=== PATIENT | female | born 1995 | race American Indian/Alaskan Native ===

== ENCOUNTER 2017-09-18 21:34 | Emergency (ER) | payer MEDICAID ==
[2017-09-18] MEDS ORDERED: Sodium Chloride 0.9% 1,000 ML IV STA ×2 (21:50→22:15)
[2017-09-18 22:34] LABS: BASO % 0.3 % (0.0-2.0); EOS # 0.2 K/uL (0.0-0.7); EOS % 1.5 % (0.0-4.0); HEMOGLOBIN 12.8 g/dL (12.0-16.0); LYMPH # 3.5 K/uL (1.0-4.3); MEAN CELL VOLUME 80.1 fl (81.0-99.0); MEAN CORPUSCULAR HEMOGLOBIN 26.4 pg (27.0-31.0); MEAN CORPUSCULAR HGB CONC 32.9 g/dL (33.0-37.0); MEAN PLATELET VOLUME 8.5 fl (7.2-11.7); MONO # 0.9 K/uL (0.0-0.8); MONO % 6.4 % (0.0-10.0); NEUT # 9.9 K/uL (1.8-7.0); NEUT % 67.8 % (50.0-75.0); NRBC % 0.1 % (0.0-0.0); RBC 4.86 Mil/uL (3.80-5.20); RED CELL DISTRIBUTION WIDTH 13.8 % (11.5-14.5); WHITE BLOOD COUNT 14.7 K/uL (4.8-10.8)
--- NOTE | 2017-09-18 22:34 | ED PDOC ---
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 Additional Complaint(s): 22 year old female with a pmhx of type II diabetes, bipolar disorder, ADHD, and depression presents for high blood sugar onset today. Of note, patient was just recently discharged from [facility] after a weeks admission for a psychiatric illness. Patient states she is currently a resident at a skilled nursing, and when she checked her blood sugar there it was 317 despite taking her metformin, prompting her to come in. As per the group dynamics instructor , patient is actually brought in for exhibiting aggressive, disruptive and violent behavior. The rag room supervisor reports the police had to be called and was informed the patient was suicidal. The patient is denying this, and states she was only brought in for her high blood sugar. PMD: none provided Past Medical History Reviewed: Historical Data, Nursing Documentation, Vital Signs Vital Signs: Last Vital Signs Temp 97.8 F 09/18/17 21:38 Pulse 120 H 09/18/17 21:38 Resp 18 09/18/17 21:38 BP 133/83 09/18/17 21:38 Pulse Ox 99 09/18/17 21:38 - Medical History PMH: Bipolar Disorder, Depression, Diabetes (type II), Schizophrenia Other PMH: ADHD - Surgical History Surgical History: No Surg Hx - Family History Family History: States: Unknown Family Hx - Living Arrangements Living Arrangements: Other (resident at a skilled nursing) - Social History Current smoker - smoking cessation education provided: No Alcohol: None Drugs: Denies - Allergies Allergies/Adverse Reactions: Allergies Allergy/AdvReac Type Severity Reaction Status Date / Time haloperidol [From Haldol] Allergy ANAPHYLAXIS Verified 09/18/17 21:37 risperidone [From Risperdal] Allergy ANAPHYLAXIS Verified 09/18/17 21:37 shellfish derived Allergy ANAPHYLAXIS Verified 09/18/17 21:38 Review of Systems ROS Statement: Except As Marked, All Systems Reviewed And Found Negative Constitutional: Positive for: Other (high blood sugar) Psych: Positive for: Suicidal ideation, Other (aggressive behavior) Physical Exam - Reviewed Nursing Documentation Reviewed: Yes Vital Signs Reviewed: Yes - Physical Exam Appears: Positive for: No Acute Distress Head Exam: Positive for: ATRAUMATIC, NORMOCEPHALIC Skin: Positive for: Normal Color, Warm, Dry Eye Exam: Positive for: Normal appearance, EOMI, PERRL ENT: Positive for: Normal ENT Inspection Neck: Positive for: Normal, Painless ROM, Supple Cardiovascular/Chest: Positive for: Tachycardia Respiratory: Positive for: Normal Breath Sounds. Negative for: Accessory Muscle Use, Respiratory Distress Gastrointestinal/Abdominal: Positive for: Normal Exam, Soft. Negative for: Tenderness Back: Positive for: Normal Inspection. Negative for: L CVA Tenderness, R CVA Tenderness, Vertebral Tenderness Extremity: Positive for: Normal ROM. Negative for: Pedal Edema, Calf Tenderness Neurologic/Psych: Positive for: Alert, Oriented (x3). Negative for: Motor/ Sensory Deficits - Laboratory Results Result Diagrams: 09/18/17 22:30 09/18/17 22:30 - ECG O2 Sat by Pulse Oximetry: 99 (RA) Pulse Ox Interpretation: Normal Medical Decision Making Medical Decision Making: Initial Impression: 22 year old female presenting with hyperglycemia and possible psychiatric disturbance Time: 21:49 Initial Plan: --1:1 Observation --Crisis eval --Urinalysis --Accucheck glucose --Normal Saline --CBC with differential --Urine --Urine dipstick --[place] --Drug screen --CMP --Alcohol serum --EKG Lasb reviewed show no clinically significant abnormalities with exception of mild hyperglycemia Patient evaluated by crisis and found to be stable for discharge to her skilled nursing DX Hyperglycemia Stable Scribe Attestation: Documented by Josie Huang, acting as a scribe for Tito Harper MD. Provider Scribe Attestation: All medical entries made by the Scribe were at my direction and personally dictated by me. I have reviewed the chart and agree that the record accurately reflects my personal performance of the history, physical exam, medical decision making, and the department course for this patient. I have also personally directed, reviewed, and agree with the discharge instructions and disposition. Time: 0128 -- Patient evaluated by crisis and is stable for discharge. -- Dx: hyperglycemia and borderline personality disorder. Scribe Attestation: Documented by Minerva Rosario acting as a scribe for Dr. Tito Harper MD. Provider Scribe Attestation: All medical record entries made by the Scribe were at my direction and personally dictated by me. I have reviewed the chart and agree that the record accurately reflects my personal performance of the history, physical exam, medical decision making, and the department course for this patient. I have also personally directed, reviewed, and agree with the discharge instructions and disposition. Disposition - Clinical Impression Clinical Impression: Hyperglycemia - Disposition Disposition: Routine/Home Disposition Time: 00:00 Condition: STABLE Additional Instructions: Patient discharged to skilled nursing Instructions: Hyperglycemia, Adult, Blood Glucose Monitoring Forms: [employer] (Romanian)
[2017-09-18 22:44] LABS: ALB/GLOB RATIO 1.3 (1.0-2.1); ALBUMIN 4.4 g/dL (3.5-5.0); ALT/SGPT 27 U/L (9-52); AST/SGOT 22 U/L (14-36); BLOOD UREA NITROGEN 10 mg/dl (7-17); CALCIUM 9.6 mg/dL (8.4-10.2); GFR AFRICAN-AMERICAN > 60; GFR NON-AFRICAN AMERICAN > 60
[2017-09-19 00:07] LABS: SQUAMOUS EPITHIAL 1 /hpf (0-5); URINE BILIRUBIN NEGATIVE (NEGATIVE); URINE BLOOD SMALL (NEGATIVE); URINE CLARITY CLEAR (Clear); URINE COLOR YELLOW (YELLOW); URINE GLUCOSE (UA) 150 mg/dL (Normal); URINE LEUKOCYTE ESTERASE NEG Leu/uL (Negative); URINE PROTEIN NEGATIVE (NEGATIVE); URINE UROBILINOGEN 0.2-1.0 mg/dL (0.2-1.0)
[2017-09-19 00:11] LABS: BARBITURATES, UR NEGATIVE (NEGATIVE); BENZODIAZEPINES, UR NEGATIVE (NEGATIVE); OPIATES, UR NEGATIVE (NEGATIVE); PHENCYCLIDINE, UR NEGATIVE (NEGATIVE)
[2017-09-19 11:01] VITALS: BP 132/69; PULSE 90; RESP 18; TEMP 98.1
--- NOTE | 2017-09-19 13:06 | CARD ---
APPROVED REPORT EKG Measurement Heart [id number] <Conclusion> Normal sinus rhythm Normal ECG
[2017-09-19 19:55] VITALS: O2SAT 99
== END 2017-09-19 10:44 | disposition home or self-care (01) ==
LOC: H.ER 21:34
DX: E11.65 Type 2 diabetes mellitus with hyperglycemia (principal); F20.9 Schizophrenia, unspecified; F31.9 Bipolar disorder, unspecified; F60.3 Borderline personality disorder; F90.9 Attention-deficit hyperactivity disorder, unspecified type
CPT/HCPCS: 80053; 80178; 80320; 80324; 80345; 80346; 80349; 80353; 80358; 80361; 81003; 81025; 82948; 83992; 85025; 93005; 96360; 99285; J7030

== ENCOUNTER 2017-09-20 13:10 | Inpatient (IN) | payer MEDICAID ==
[2017-09-20] MEDS ORDERED: DiphenhydrAMINE 50 mg/ml Inj ONE (13:27)
[2017-09-20] MEDS ORDERED: DiphenhydrAMINE 50 mg/ml Inj IM STA (13:44)
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
[2017-09-20 14:50] LABS: BASO % 0.2 % (0.0-2.0); EOS # 0.1 K/uL (0.0-0.7); EOS % 0.5 % (0.0-4.0); LYMPH # 2.5 K/uL (1.0-4.3); LYMPH % 14.3 % (20.0-40.0); MEAN CORPUSCULAR HGB CONC 32.4 g/dL (33.0-37.0); MEAN PLATELET VOLUME 8.5 fl (7.2-11.7); MONO # 0.8 K/uL (0.0-0.8); MONO % 4.8 % (0.0-10.0); NEUT # 13.9 K/uL (1.8-7.0); NEUT % 80.2 % (50.0-75.0); RED CELL DISTRIBUTION WIDTH 13.9 % (11.5-14.5); WHITE BLOOD COUNT 17.3 K/uL (4.8-10.8)
[2017-09-20 15:09] LABS: ALB/GLOB RATIO 1.1 (1.0-2.1); ALBUMIN 4.2 g/dL (3.5-5.0); ALT/SGPT 28 U/L (9-52); AST/SGOT 37 U/L (14-36); BLOOD UREA NITROGEN 12 mg/dl (7-17); CALCIUM 9.9 mg/dL (8.4-10.2); GFR AFRICAN-AMERICAN > 60; GFR NON-AFRICAN AMERICAN > 60
[2017-09-20 15:23] LABS: SQUAMOUS EPITHIAL 3 /hpf (0-5); URINE BILIRUBIN NEGATIVE (NEGATIVE); URINE BLOOD SMALL (NEGATIVE); URINE CLARITY CLOUDY (Clear); URINE COLOR YELLOW (YELLOW); URINE GLUCOSE (UA) NEG (Normal); URINE LEUKOCYTE ESTERASE TRACE Leu/uL (Negative); URINE PROTEIN 30 mg/dL (NEGATIVE); URINE UROBILINOGEN 0.2-1.0 mg/dL (0.2-1.0)
[2017-09-20 15:53] LABS: BARBITURATES, UR NEGATIVE (NEGATIVE); BENZODIAZEPINES, UR NEGATIVE (NEGATIVE); OPIATES, UR NEGATIVE (NEGATIVE); PHENCYCLIDINE, UR NEGATIVE (NEGATIVE)
[2017-09-20 17:46] LABS: BASO # 0.1 K/uL (0.0-0.2); BASO % 0.4 % (0.0-2.0); EOS # 0.1 K/uL (0.0-0.7); EOS % 0.5 % (0.0-4.0); HEMOGLOBIN 12.5 g/dL (12.0-16.0); LYMPH # 3.5 K/uL (1.0-4.3); LYMPH % 17.4 % (20.0-40.0); MEAN CELL VOLUME 80.3 fl (81.0-99.0); MEAN CORPUSCULAR HEMOGLOBIN 25.9 pg (27.0-31.0); MEAN CORPUSCULAR HGB CONC 32.2 g/dL (33.0-37.0); MEAN PLATELET VOLUME 8.5 fl (7.2-11.7); MONO # 1.1 K/uL (0.0-0.8); MONO % 5.6 % (0.0-10.0); NEUT # 15.4 K/uL (1.8-7.0); NEUT % 76.1 % (50.0-75.0); RBC 4.81 Mil/uL (3.80-5.20); RED CELL DISTRIBUTION WIDTH 14.1 % (11.5-14.5); WHITE BLOOD COUNT 20.2 K/uL (4.8-10.8)
[2017-09-20] MEDS ORDERED: Sodium Chloride 0.9% 1,000 ML IV STA ×2 (18:03→19:40)
[2017-09-20 20:49] LABS: BASO # 0.1 K/uL (0.0-0.2); BASO % 0.6 % (0.0-2.0); EOS # 0.2 K/uL (0.0-0.7); EOS % 0.9 % (0.0-4.0); HEMOGLOBIN 11.7 g/dL (12.0-16.0); LYMPH # 3.8 K/uL (1.0-4.3); LYMPH % 21.4 % (20.0-40.0); MEAN CELL VOLUME 79.8 fl (81.0-99.0); MEAN CORPUSCULAR HEMOGLOBIN 26.3 pg (27.0-31.0); MEAN PLATELET VOLUME 8.3 fl (7.2-11.7); MONO % 5.9 % (0.0-10.0); NEUT # 12.6 K/uL (1.8-7.0); NEUT % 71.2 % (50.0-75.0); RBC 4.45 Mil/uL (3.80-5.20); WHITE BLOOD COUNT 17.7 K/uL (4.8-10.8)
--- NOTE | 2017-09-20 21:35 | ED PDOC ---
- Laboratory Results Result Diagrams: 09/20/17 20:45 09/20/17 14:40 - ECG O2 Sat by Pulse Oximetry: 96 Medical Decision Making Medical Decision Making: Case endorsed to me from MARY Rod at 1999 pending [facility] screen. Labs reviewed, wbc is noted to be elevated, however the patient has no source of infection, has no fever and no other complaints indicating a possible source of infection. [address]100 [facility] here to evaluate the patient. After [facility] evaluation, decision will be for inpatient admission as per Dr. Cam. Disposition - Clinical Impression Clinical Impression: Suicide gesture, Schizophrenia - POA Present On Arrival: None - Disposition Disposition: Admitted as In-Patient Disposition Time: 22:00 Condition: FAIR Forms: [employer] (Estonian) - PA / RECEPTIONIST/TELEPHONE OPERATOR / Resident Statement MD/DO has reviewed & agrees with the documentation as recorded.
[2017-09-20] MEDS ORDERED: DiphenhydrAMINE 50 mg/ml Inj IM PRN (23:08)
[2017-09-20] MEDS ORDERED: Magnesium Hydroxide Susp 30 ml UD PO PRN (23:08)
[2017-09-20] MEDS ORDERED: Alum-Mag Hydrox-Simethicone Susp (30 mL) PO PRN (23:08)
[2017-09-20 23:11] VITALS: O2SAT 100
[2017-09-21 00:07] VITALS: RESP 20
--- NOTE | 2017-09-21 00:16 | PCM.BM ---
Treatment Plan Problems - Problems identified on initial assessmt Auditory hallucinations Date Initiated: 09/21/17 Time Initiated: 00:14 Assessment reference: NA Status: Active Visual hallucinations Date Initiated: 09/21/17 Time Initiated: 00:15 Assessment reference: NA Status: Active Hopelessness/Helplessness Date Initiated: 09/21/17 Time Initiated: 00:16 Assessment reference: NA Status: Active Altered Sleep pattern Date Initiated: 09/21/17 Time Initiated: 00:17 Assessment reference: NA Status: Active Medication Nonadherence Date Initiated: 09/21/17 Time Initiated: 00:17 Assessment reference: NA Status: Active Nutrition More than Body requierement Date Initiated: 09/21/17 Time Initiated: 00:18 Assessment reference: NA Status: Active Treatment assets and liabiliti Patient Assests: adapts well, ADL independent, negotiates basic needs Patient Liabilities: poor support system, relationship conflicts, substance abuse, medical problems - Milieu Protocol Maintain good personal hygiene: daily Assist patient to perform ADL's, every shift Encourage regular showers, every shift Remind patient to perform daily oral care Conduct patient checks and document Observation sheet: Q15 minutes Maintain personal safety: every shift Educate patient to report safety concerns to staff, every shift Monitor environment for contraband/sharps Medication safety: Monitor for expected outcome, potential side effects: every shift, Assess barriers to learning: every shift, Assess readiness for medication education: every shift
[2017-09-21 08:01] LABS: HEMOGLOBIN 11.9 g/dL (12.0-16.0); MEAN CELL VOLUME 80.4 fl (81.0-99.0); MEAN CORPUSCULAR HEMOGLOBIN 26.1 pg (27.0-31.0); MEAN CORPUSCULAR HGB CONC 32.5 g/dL (33.0-37.0); RBC 4.54 Mil/uL (3.80-5.20); WHITE BLOOD COUNT 12.4 K/uL (4.8-10.8)
[2017-09-21 08:39] LABS: T4 10.7 ug/dl (5.5-11.0)
--- NOTE | 2017-09-21 10:15 | RAD ---
HISTORY: ROUTINE COMPARISON: No prior. FINDINGS: LUNGS: No active pulmonary disease. PLEURA: No significant pleural effusion identified, no pneumothorax apparent. CARDIOVASCULAR: Normal. OSSEOUS STRUCTURES: No significant abnormalities. VISUALIZED UPPER ABDOMEN: Normal. OTHER FINDINGS: None. IMPRESSION: No active disease.
--- NOTE | 2017-09-21 12:42 | PCM.PSYCH ---
Initial Psychiatric Evaluation - Initial Psychiatric Evaluation Type of Admission: Voluntary Legal Status: Capacity Chief Complaint (in patient's own words): I hear the devil telling me to hurt myself Patient's Reaction to Hospitalization: pt requesting help History of Present Illness and Precipitating Events: pt is 22ys old femabramwe with previous psychiatric diagnosis of schizoaffective disorder and learning disability , pt reported has been in psychiatric treatment since age [age] pt has been recently transferred to a senior living after three month hospitalization at [facility], followed by [place] week [place] [facility], pt reported poor compliance with medications including risperidone, abilify and seroquel due to side effects pt since then has been experiencing auditory hallucinations, hearing the devil talking to her , pt reported feeling unhappy in the senior living due to the conflict with staff, on day of evaluation they refused to let her go to [facility]ianist she became increasingly angry starting , ran from the senior living, she started experiencing suicidal ideation with plan to cut her wrist , when found by police she became agitated and aggressive and had to be restrained, \pt on the unit reported she continues to hear auditory hallucinations, hearing the devil telling her to kill herself, reported continues to have urges to cut her wrist, reported feeling depressed, hopeless and helpless about her situation Current Medications: Active Medications Generic Name Dose Route Start Last Admin Trade Name Freq PRN Reason Stop Dose Admin Acetaminophen 650 mg 09/20/17 23:08 Tylenol 325mg Tab PO Q4 PRN Pain, moderate (4-7) Al Hydrox/Mg Hydrox/Simethicone 30 ml 09/20/17 23:08 Maalox Plus 30 Ml PO Q4 PRN Dyspepsia Benztropine Mesylate 0.5 mg 09/21/17 13:00 Cogentin PO TID MOJGAN Diphenhydramine HCl 50 mg 09/20/17 23:08 Benadryl IM Q6 PRN Extrapyramidal S/S Unable PO Diphenhydramine HCl 50 mg 09/20/17 23:08 Benadryl PO Q6 PRN Extrapyramidal Symptoms Diphenhydramine HCl 50 mg 09/20/17 23:24 09/21/17 00:14 Benadryl PO 50 mg HS PRN Administration Sleep Lorazepam 1 mg 09/20/17 23:08 Ativan PO Q4 PRN Anxiety/Agitation Magnesium Hydroxide 30 ml 09/20/17 23:08 Milk Of Magnesia PO HS PRN Constipation Nicotine 1 patch 09/21/17 09:00 09/21/17 09:30 Nicoderm Cq TD 1 patch DAILY MOJGAN Administration Perphenazine 2 mg 09/21/17 13:00 Perphenazine PO TID MOJGAN Past Psychiatric History - Past Psychiatric History Explanation of prior treatment: pt has been in treatment since age [age] , unsprecified number of hodpitalizations, eleven suicidal attempts by cutting wrist and attempting to stab self History of ETOH/Drug Use: denied Pertinent Medical Hx (Current Medical&Sleep Prob, Allergies): Allergies Allergy/AdvReac Type Severity Reaction Status Date / Time haloperidol [From Haldol] Allergy ANAPHYLAXIS Verified 09/18/17 21:37 risperidone [From Risperdal] Allergy ANAPHYLAXIS Verified 09/18/17 21:37 shellfish derived Allergy ANAPHYLAXIS Verified 09/18/17 21:38 Mental Status Examination - Personal Presentation Personal Presentation: Looks older than stated age Additional comments: over weight - Affect Affect: Constricted, Depressed - Motor Activity Motor Activity: Psychomotor Agitation - Reliability in Providing Information Reliability in Providing Information: Poor, due to alteration in thoughts, Poor , due to altered mood - Speech Speech: Relevant - Mood Mood: Depressed, Anxious - Formal Thought Process Formal Thought Process: Hallucinations, Delusions, Paranoia Additional comments: command auditory hallucinations of the devil asking her to hurt herself - Hallucinations/Delusions Hallucinations: Auditory - Obsessions/Compulsions Obsessions: No Compulsions: No - Cognitive Functions Orientation: Person, Place Sensorium: Alert Attention/Concentration: Attentive Judgement: Imparied, as evidence by: Poor judgement - Risk Risk: Suicidal, Diminished functioning - Strength & Assets Inventory Strength & Assets Inventory: Life experience - Limitations Additional comments: poor social support DSM 5 DX - DSM 5 DSM 5 Diagnosis: schizoaffective disorder by history borderline personality disorder PTSD - Recommended/Plan of Treatment Treatment Recommendations and Plan of Treatment: DISCUSSED DIFFERENT TREATMENT OPTIONS WITH PT PT REPORTED ANTI DOPAMIERGICS RESULTS IN [facility] abilify resulted in increased suicidal ideation seroquel resulted in increase weight gain will start zprexa 5mg tid with monitoring of metabolic side effects cogentin 0.5mg tid pt continues to experience command auditory hallucinations to hurt self will start 1:1 observation for suicide risk
[2017-09-21] MEDS: OLANZapine 5 mg Disintegrating Tab PO SCH ×2 (14:14→17:29)
[2017-09-21 18:31] VITALS: BP 142/75; PULSE 104; TEMP 97.2
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
[2017-09-22] MEDS: OLANZapine 5 mg Disintegrating Tab PO SCH ×3 (09:02→18:34)
--- NOTE | 2017-09-22 12:31 | PCM.PYCHPN ---
Psychiatric Progress Note - Psychiatric Progress Note Patient seen today, length of contact: pt evaluated discussed with team chart reviewed Patient Chief Complaint: I need to leave, I should by november Problems Identified/Issues Discussed: pt evaluated , continues to verbalize suicidal ideations with plan either to hang or suffocate herself, pt stating she is responding to the devil talking to her and telling her she needs to be by november, pt ahd to be medicated multiple times dby PRN due to attempts to scratch her skin despite being on 1:1 observation, she shared with the undersigned her art work which conveys how she plans to end her life in response to the devil, pt refusing to take her medications, and signed 48n hour notice requesting to be discharged, she also connues to make homicidal threats towards staff members Medical Problems: pt has been in treatment since age [age] , unsprecified number of hodpitalizations, eleven suicidal attempts by cutting wrist and attempting to stab self DSM 5 Symptoms Update: schizoaffective disorder bipolar type bordrline intelectual function Medication Change: Yes (increase zyprexa) Medical Record Reviewed: Yes Mental Status Examination - Cognitive Function Orientation: Person, Place Memory: Intact Attention: Poor Concentration: Poor Association: WNL Fund of Knowledge: Poor Decription of patient's judgement and insights: poor insight and judgment - Mood Mood: Depressed, Anxious - Affect Affect: Constricted, Depressed - Formal Thought Process Formal Thought Process: Hallucinations, Delusions, Paranoia Psychotic Thoughts and Behaviors: command auditory hallucinations to kill herself - Suicidal Ideation Suicidal Ideation: Yes - Homicidal Ideation Homicidal Ideation: Yes Goal/Treatment Plan - Goal/Treatment Plan Need for Continued Stay: Severe depression anxiety, Discharge may exacerbated symptoms, Failed transitioning, Severe functional impairment Progress Toward Problem(s) and Goals/Treatment Plan: pt continues to verbalize suicidal and homicidal ideation pt need to be on 1:1 for safety of self and others pt signed 48hr notice requesting to be discharged , will be referred to be screened for involuntary admission as she continues to be danger to self and others encourage medication compliance contine with supportive therapy
[2017-09-22] MEDS ORDERED: OLANZapine 5 mg Disintegrating Tab PO SCH (22:00)
[2017-09-23] MEDS: OLANZapine 5 mg Disintegrating Tab PO SCH (11:07)
--- NOTE | 2017-09-23 11:47 | PCM.PYCHDC ---
Mental Status Examination - Mental Status Examination Orientation: Person, Situation Memory: Intact Mood: Anxious Affect: Constricted, Depressed Attention: WNL Concentration: Poor Formal Thought Process: Hallucinations, Delusions, Paranoia Description of patient's judgement and insight: poor insight and judgment Psychotic Thoughts and Behaviors: command auditory hallucinations to kill herself Suicidal Ideation: Yes Current Homicidal Ideation?: Yes Discharge Summary - Discharge Note Reason for Hospitalization: pt is 22ys old femalwe with previous psychiatric diagnosis of schizoaffective disorder and learning disability , pt reported has been in psychiatric treatment since age [age] pt has been recently transferred to a jail after three month hospitalization at [facility], followed [place] [facility] [place] pt reported poor compliance with medications including risperidone, abilify and seroquel due to side effects pt since then has been experiencing auditory hallucinations, hearing the devil talking to her , pt reported feeling unhappy in the jail due to the conflict with staff, on day of evaluation they refused to let her go to [facility] she became increasingly angry starting , ran from the jail, she started experiencing suicidal ideation with plan to cut her wrist , when found by police she became agitated and aggressive and had to be restrained, \pt on the unit reported she continues to hear auditory hallucinations, hearing the devil telling her to kill herself, reported continues to have urges to cut her wrist, reported feeling depressed, hopeless and helpless about her situation Laboratory Data: Abnormal Lab Results 09/22/17 09/22/17 09/22/17 12:15 16:27 20:04 POC Glucose (mg/dL) 126 H 233 H 247 H 09/23/17 07:49 POC Glucose (mg/dL) 169 H Consultations:: List each consultation separately and include: 1. Reason for request. 2. Findings. 3. Follow-up Summary of Hospital Course include:: 1. Description of specific treatment plan utilized for patients during their course of treatmen. 2. Summarize the time- course for resolution of acute symptoms and/or regressed behaviors. 3. Describe issues identified and worked on during hospitalization. 4. Describe medication utilized. 5. Describe medical problems identified and treated. 6. Reassessment of suicide risk Summary of Hospital Course: pt on admission continues to verbalize suicidal and homicidal ideation pt needed to be on 1:1 for safety of self and others pt signed 48hr notice requesting to be discharged , pt was referred to be screened for involuntary admission as she continues to be danger to self and others pt was accepted and [place] [facility] [place] - Final Diagnosis (DSM 5) Condition upon Discharge: STABLE DSM 5: SCHIZOAFFECTIVE DISORDER BORDERLINE PERSONALITY DISORDER Disposition: DISCHARGE TO [facility] Follow-up Treatment Plan: pt continues to verbalize suicidal and homicidal ideation pt need to be on 1:1 for safety of self and others pt signed 48hr notice requesting to be discharged , will be referred to be screened for involuntary admission as she continues to be danger to self and others encourage medication compliance contine with supportive therapy - Antipsychotic Medications Pt discharged on 2 or more routine antipsychotic medications: No
[2017-09-23] MEDS ORDERED: DiphenhydrAMINE 50 mg/ml Inj IM STA (11:53)
== END 2017-09-23 12:15 | DRG 430 ==
LOC: H.ER 13:10 → H.ERHOLD 22:14 → H.PSYCH 23:24
PROVIDERS: ADMIT Psychiatry & Neurology Psychiatry; ATTEND Psychiatry & Neurology Psychiatry
PROC: GZHZZZZ Group Psychotherapy (ICD-10-PCS; principal; 2017-09-20)
PROC: GZ56ZZZ Individual Psychotherapy, Supportive (ICD-10-PCS; 2017-09-20)
DX: F25.9 Schizoaffective disorder, unspecified (principal); F60.3 Borderline personality disorder; R45.850 Homicidal ideations; R45.851 Suicidal ideations; Z91.013 Allergy to seafood; E11.9 Type 2 diabetes mellitus without complications; F81.9 Developmental disorder of scholastic skills, unspecified; E66.3 Overweight; Z68.37 Body mass index [BMI] 37.0-37.9, adult

== ENCOUNTER 2017-11-13 17:04 | Inpatient (IN) | payer MEDICAID ==
[2017-11-13 17:04] VITALS: BMI 38.9
--- NOTE | 2017-11-13 19:02 | ED PDOC ---
HPI: Psych/Substance Abuse Time Seen by Provider: 11/13/17 17:07 Chief Complaint (Nursing): Psychiatric Evaluation Chief Complaint (Provider): SI History Per: Patient History/Exam Limitations: no limitations Onset/Duration Of Symptoms: Days Current Symptoms Are (Timing): Still Present Additional Complaint(s): 22 yo female with history of bipolar and borderline personality disorder presents with SI. PT states she has been having them for 1 week and plans to overdose on heroin which she has never done in the past. Pt was discharged from [facility] this morning. Pt states they "kicked her out" using security. Past Medical History Reviewed: Historical Data, Nursing Documentation, Vital Signs Vital Signs: Last Vital Signs Temp 98.2 F 11/13/17 17:05 Pulse 105 H 11/13/17 17:05 Resp 16 11/13/17 17:05 BP 128/80 11/13/17 17:05 Pulse Ox 99 11/13/17 17:05 - Medical History PMH: Anxiety, Asthma, Bipolar Disorder, Depression, HTN, Hypercholesterolemia, Hypothyroidism, Personality Disorder, Post Traumatic Stress Disorder, Schizophrenia Denies: Diabetes, Hepatitis, HIV, Chronic Kidney Disease, Seizures, Sexually Transmitted Disease - Surgical History Surgical History: Tonsillectomy - Family History Family History: States: No Known Family Hx - Living Arrangements Living Arrangements: With Family - Social History Current smoker - smoking cessation education provided: No - Home Medications Home Medications: Ambulatory Orders Medication Instructions Recorded Gabapentin [Neurontin] 300 mg PO BID 10/30/17 [place] Carbonate [[place] 600 mg PO BID 10/30/17 Carbonate 300MG] Prazosin HCL [Minipress] 2 mg PO HS 10/30/17 chlorproMAZINE [chlorPROMAZINE HCL] 50 mg PO DAILY 10/30/17 chlorproMAZINE [chlorpromazine HCl] 150 mg PO HS 10/30/17 Albuterol HFA [Ventolin HFA 90 2 puff IH [id number] PRN inhaler 11/03/17 mcg/actuation (8 g)] Calcium Carbonate/Vitamin D 1 tab PO DAILY tab 11/03/17 [Oscal-D 250 mg-125 Units Tab] FLUoxetine [Prozac] 40 mg PO DAILY cap 11/03/17 Gabapentin [Neurontin] 300 mg PO TID cap 11/03/17 [place] Carbonate [[place] 600 mg PO BID cap 11/03/17 Carbonate 300MG] Naltrexone [Revia] 50 mg PO DAILY tab 11/03/17 Pantoprazole [Protonix EC Tab] 40 mg PO 0600 ect 11/03/17 chlorproMAZINE [Thorazine] 25 mg IM TID PRN #0 amp 11/03/17 chlorproMAZINE [Thorazine] 25 mg PO TID PRN #0 tab 11/03/17 chlorproMAZINE [Thorazine] 50 mg PO DAILY tab 11/03/17 chlorproMAZINE [Thorazine] 150 mg PO HS tab 11/03/17 hydrOXYzine Pamoate [Vistaril] 50 mg PO Q8 PRN cap 11/03/17 metFORMIN [glucOPHAGE] 500 mg PO BID tab 11/03/17 traZODone [Desyrel] 50 mg PO HS PRN tab 11/03/17 - Allergies Allergies/Adverse Reactions: Allergies Allergy/AdvReac Type Severity Reaction Status Date / Time haloperidol [From Haldol] Allergy ANAPHYLAXIS Verified 10/30/17 06:26 risperidone [From Risperdal] Allergy ANAPHYLAXIS Verified 10/30/17 06:26 shellfish derived Allergy ANAPHYLAXIS Verified 10/30/17 06:26 seafood Allergy ANAPHYLAXIS Uncoded 10/30/17 06:26 Review of Systems ROS Statement: Except As Marked, All Systems Reviewed And Found Negative Constitutional: Negative for: Fever, Chills Psych: Positive for: Suicidal ideation. Negative for: Psychosis, Withdrawal Physical Exam - Reviewed Nursing Documentation Reviewed: Yes Vital Signs Reviewed: Yes - Physical Exam Appears: Positive for: Well, Non-toxic, No Acute Distress Head Exam: Positive for: ATRAUMATIC, NORMAL INSPECTION, NORMOCEPHALIC Skin: Positive for: Normal Color, Warm, DRY Eye Exam: Positive for: Normal appearance ENT: Positive for: Normal ENT Inspection Neck: Positive for: Normal, Painless ROM Cardiovascular/Chest: Positive for: Regular Rate, Rhythm Respiratory: Positive for: Normal Breath Sounds. Negative for: Accessory Muscle Use, Respiratory Distress Back: Positive for: Normal Inspection Extremity: Positive for: Normal ROM Neurologic/Psych: Positive for: Alert, garde manger II-XII, Oriented, Gait. Negative for : Aphasia, Facial Droop - ECG O2 Sat by Pulse Oximetry: 99 Pulse Ox Interpretation: Normal Medical Decision Making Medical Decision Makin - Crisis evaluation completed. tar worker states Dr. Cam would like patient reassessed. [id number] - Informed that patient is going to be admitted to psychiatric unit. Labs ordered. 000 - Endorsed pending labs for admission to the psychiatric unit. Disposition - Clinical Impression Clinical Impression: Encounter for psychiatric assessment - Patient ED Disposition Is Patient to be Admitted: Transfer of Care - Disposition Disposition: Transfer of Care Disposition Time: 00:00 Condition: GOOD Forms: [employer] (Kyrgyz)
[2017-11-13 23:16] LABS: SQUAMOUS EPITHIAL 4 /hpf (0-5); URINE BACTERIA RARE (<OCC); URINE BILIRUBIN NEGATIVE (NEGATIVE); URINE BLOOD NEGATIVE (NEGATIVE); URINE CLARITY SLIGHTY-CLOUDY (Clear); URINE COLOR YELLOW (YELLOW); URINE GLUCOSE (UA) NEG (Normal); URINE LEUKOCYTE ESTERASE SMALL Leu/uL (Negative); URINE PROTEIN NEGATIVE (NEGATIVE); URINE UROBILINOGEN 0.2-1.0 mg/dL (0.2-1.0)
[2017-11-13 23:31] LABS: BARBITURATES, UR NEGATIVE (NEGATIVE); BENZODIAZEPINES, UR NEGATIVE (NEGATIVE); OPIATES, UR NEGATIVE (NEGATIVE); PHENCYCLIDINE, UR NEGATIVE (NEGATIVE)
[2017-11-13 23:50] LABS: HEMOGLOBIN 11.9 g/dL (12.0-16.0); MEAN CELL VOLUME 78.4 fl (81.0-99.0); MEAN CORPUSCULAR HEMOGLOBIN 25.1 pg (27.0-31.0); RBC 4.75 Mil/uL (3.80-5.20); RED CELL DISTRIBUTION WIDTH 15.7 % (11.5-14.5); WHITE BLOOD COUNT 17.5 K/uL (4.8-10.8)
[2017-11-14 00:04] LABS: ALB/GLOB RATIO 1.3 (1.0-2.1); ALBUMIN 4.4 g/dL (3.5-5.0); ALT/SGPT 31 U/L (9-52); AST/SGOT 19 U/L (14-36); BLOOD UREA NITROGEN 6 mg/dl (7-17); CALCIUM 9.8 mg/dL (8.4-10.2); GFR NON-AFRICAN AMERICAN > 60
--- NOTE | 2017-11-14 01:04 | ED PDOC ---
- Laboratory Results Result Diagrams: 11/13/17 23:47 11/13/17 23:47 Urine POC: Negative - ECG O2 Sat by Pulse Oximetry: 99 - Progress ED Course And Treament: cxr: nad urinalysis wnl. elevated wbc 17.5 noted. Patient does not have fever/or signs of infection. Patient asks repeatedly for Ativan in ED. Ativan 1 mg po x 1 dose Disposition - Clinical Impression Clinical Impression: Encounter for psychiatric assessment - POA Present On Arrival: None - Disposition Disposition: Admitted as In-Patient Disposition Time: 01:25 Condition: GOOD
[2017-11-14] MEDS ORDERED: DiphenhydrAMINE 50 mg/ml Inj IM PRN (03:18)
[2017-11-14] MEDS ORDERED: Magnesium Hydroxide Susp 30 ml UD PO PRN (03:18)
[2017-11-14] MEDS ORDERED: Alum-Mag Hydrox-Simethicone Susp (30 mL) PO PRN (03:18)
--- NOTE | 2017-11-14 03:57 | PCM.BM ---
<Fany Forbes Kathryn - Last Filed: 11/14/17 03:55> Treatment Plan Problems - Problems identified on initial assessmt Auditory Hallucinations Date Initiated: 11/14/17 Time Initiated: 03:55 Assessment reference: NA Status: Active Ineffective Impulse Control Date Initiated: 11/14/17 Time Initiated: 03:56 Assessment reference: NA Status: Active Treatment assets and liabiliti Patient Assests: adapts well, cooperative, ADL independent, negotiates basic needs Patient Liabilities: poor support system, substance abuse - Milieu Protocol Maintain good personal hygiene: daily Encourage regular showers, every shift Remind patient to perform daily oral care Conduct patient checks and document Observation sheet: Q15 minutes Maintain personal safety: every shift Educate patient to report safety concerns to staff, every shift Monitor environment for contraband/sharps Medication safety: Monitor for expected outcome, potential side effects: every shift, Assess barriers to learning: every shift, Assess readiness for medication education: every shift <Alfonso Payne J - Last Filed: 11/20/17 16:57> Family Contact Family involvement: Family/SO is involved Family contact: Patient agrees to contact, Family has been contacted by patient , Telephone contact initiated by staff Family contact name: Alejandro Humphries Family contacted how many times per week?: 2 Family contact comment: Senior Maintenance Machinist spoke with pt's Alejandro humphries [phone], to discuss progress on the unit. Alejandro reported that pt's main problem is that she "holds everything in," and does not like to talk about her thoughts and feelings. Alejandro agreed that pt requires intense therapy to work through her feelings and finds more productive coping skills to handle her psychiatric symptoms. [facility] versus [facility] discussed and Alejandro agreed that it would likely be a better fit. Alejandro had no questions or concerns at this time. - Outside Agency Agency 1 Care involvment: Following patient during stay, Information-sharing Agency contact name: Ellen BARON family independence case manager - Goals for Treatment Patient goals for treatment: Pt offered no specific goals for treatment, but would like a referral to a new day program. Discharge/Continuing Care - Education Needs Education Needs: Family Medication, Family Diagnosis/Disease Process, Family Coping Skills, Family Placement options, Family Community resources, Family Aftercare Safety Plan, Patient Medication, Patient Diagnosis/Disease Process, Patient Coping Skills, Patient Placement options, Patient Community resources, Patient Aftercare Safety Plan - Discharge Discharge Criteria: Tolerates medication w/o severe side effects, Free of Suicidal thoughts, Free of paranoid thoughts, Free of agitation, Normal sleep pattern, Reduction of target symptoms Discharge to:: Snf - Treatment Team Participation Discussed with Family/SO: Yes Was Patient/Family/SO present at Treatment Team Meeting: Yes
[2017-11-14 08:47] LABS: T4 9.17 ug/dl (5.5-11.0)
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
--- NOTE | 2017-11-14 14:41 | RAD ---
Date of service: 11/14/2017 HISTORY: routine COMPARISON: Comparison chest dated 09/20/2017 TECHNIQUE: Chest PA and lateral FINDINGS: LUNGS: No active pulmonary disease. PLEURA: No significant pleural effusion identified. No pneumothorax apparent. CARDIOVASCULAR: Normal. OSSEOUS STRUCTURES: No significant abnormalities. VISUALIZED UPPER ABDOMEN: Normal. OTHER FINDINGS: None. IMPRESSION: No active disease.
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
[2017-11-14] MEDS: Insulin Regular 100 units/ml SC SCH ×2 (17:08→22:14)
[2017-11-15] MEDS: Insulin Regular 100 units/ml SC SCH ×4 (06:56→22:00)
--- NOTE | 2017-11-15 12:16 | PCM.PYCHPN ---
Psychiatric Progress Note - Psychiatric Progress Note Patient seen today, length of contact: pt seen today and evaluated . Patient Chief Complaint: pt has remained depressed and anxious and still having dreams about devil and still hallucinates and delusional that she will in one month.pt remains internally preoccupied with poor insight and poor judgement .no side effects to meds . Medication Change: Yes (increase thorazine.) Medical Record Reviewed: Yes Mental Status Examination - Cognitive Function Orientation: Person, Place, Situation, Time Memory: Intact Attention: Poor Concentration: Poor Association: WNL Fund of Knowledge: WNL - Mood Mood: Depressed, Anxious - Affect Affect: Constricted - Formal Thought Process Formal Thought Process: Hallucinations, Delusions, Paranoia - Suicidal Ideation Suicidal Ideation: No - Homicidal Ideation Homicidal Ideation: No Goal/Treatment Plan - Goal/Treatment Plan Progress Toward Problem(s) and Goals/Treatment Plan: will increase thorazine to 100 mg am and 200 mg hs to stabilize the psychosis and engage pt in therapy and groups. medical consult to adjust meds for DM
[2017-11-15 21:44] VITALS: O2SAT 99
[2017-11-16] MEDS: Insulin Regular 100 units/ml SC SCH ×3 (06:33→17:08)
--- NOTE | 2017-11-16 15:41 | PCM.PYCHPN ---
Psychiatric Progress Note - Psychiatric Progress Note Patient seen today, length of contact: pt seen today and evaluated . Patient Chief Complaint: I am still paranoid nd I think the devil is after me Problems Identified/Issues Discussed: pt evaluated , reported feeling watched, and paranoid, feeling the devil from the [facility] is after her, pt also reported poor sleep , having night harris about her friend and feeling guilty for not helping her, pt continues to be labile and irritable , denied command hallucinations, denied active suicidal or homicidal ideation on the unit DSM 5 Symptoms Update: bipolar disorder ptsd borderline personality disorder Medication Change: Yes (increase thorazine.) Medical Record Reviewed: Yes Mental Status Examination - Cognitive Function Orientation: Person, Place, Situation, Time Memory: Intact Attention: Poor Concentration: Poor Association: WNL Fund of Knowledge: WNL - Mood Mood: Depressed, Anxious - Affect Affect: Constricted - Formal Thought Process Formal Thought Process: Hallucinations, Delusions, Paranoia Psychotic Thoughts and Behaviors: pt paranoid - Suicidal Ideation Suicidal Ideation: No - Homicidal Ideation Homicidal Ideation: No Goal/Treatment Plan - Goal/Treatment Plan Need for Continued Stay: Severe functional impairment Progress Toward Problem(s) and Goals/Treatment Plan: increase thorazine 400mg daily start prazosin for PTSD symptoms, night harris, continue with prozac and neurontin CBT , group and supportive therapy
[2017-11-17] MEDS: Insulin Regular 100 units/ml SC SCH ×2 (09:46→17:34)
--- NOTE | 2017-11-17 14:40 | PCM.PYCHPN ---
Psychiatric Progress Note - Psychiatric Progress Note Patient seen today, length of contact: pt seen today and evaluated . Patient Chief Complaint: I still could not sleep well and I am hearing voices Problems Identified/Issues Discussed: pt evaluated , continues to report poor sleep, with frequent night harris, continues to report non command auditory hallucinations , discussed wit pt increasing dose of thorazine , and trazdone. pt continues to report thoughts of self harm including cutting self due to frustration with her current living situation in correction, CBT provided discussed with pt alternative healthy coping skills with stress encouraged pt to attend groups Medical Problems: diabetes DSM 5 Symptoms Update: borderline personality disorder bipolar disorder PTSD Medication Change: Yes (increase thorazine.) Medical Record Reviewed: Yes Mental Status Examination - Cognitive Function Orientation: Person, Place, Situation, Time Memory: Intact Attention: WNL Concentration: WNL Association: WNL Fund of Knowledge: [facility] Decription of patient's judgement and insights: partial insight , poor judgment and poor impulse control - Mood Mood: Depressed, Anxious - Affect Affect: Constricted - Speech Speech: Appropriate - Formal Thought Process Formal Thought Process: Hallucinations, Delusions, Paranoia Psychotic Thoughts and Behaviors: pt continues to report non command auditory hallucinations - Suicidal Ideation Suicidal Ideation: No - Homicidal Ideation Homicidal Ideation: No Goal/Treatment Plan - Goal/Treatment Plan Need for Continued Stay: Severe depression anxiety, Discharge may exacerbated symptoms, Severe functional impairment Progress Toward Problem(s) and Goals/Treatment Plan: i thorazine 200mg daily and 300mg qhs prazosin for PTSD symptoms, night harris, continue with prozac and neurontin lithium 600mg bid, follow up on lithium level CBT , group and supportive therapy Estimated Date of D/C: 11/20/17
[2017-11-18] MEDS: Insulin Regular 100 units/ml SC SCH ×2 (09:10→17:31)
--- NOTE | 2017-11-18 15:29 | PCM.PYCHPN ---
Psychiatric Progress Note - Psychiatric Progress Note Patient seen today, length of contact: pt seen today and evaluated . Patient Chief Complaint: I still feel paranoid Problems Identified/Issues Discussed: pt evaluated with treatment team, reported improved sleep with the increase in trazodone, continues to feel paranoid , feeling sad and hopless about current living situation and having to be in the prison, CBT provided also discussed with pt the need to continue with therapy on discharge, pt denied any current thoughts of self harm, no reported side effects of medications , no reported perceptual disturbances discussed increasing dose of thorazine as needed for the paranoid thoughts Medical Problems: diabetes DSM 5 Symptoms Update: bipolar disorder borderline personality disorder Medication Change: No Medical Record Reviewed: Yes Mental Status Examination - Cognitive Function Orientation: Person, Place, Situation, Time Memory: Intact Attention: WNL Concentration: WNL Association: WNL Fund of Knowledge: WN Decription of patient's judgement and insights: partial insight , poor judgment and poor impulse control - Mood Mood: Depressed, Anxious - Affect Affect: Constricted - Speech Speech: Appropriate - Formal Thought Process Formal Thought Process: Delusions, Paranoia Psychotic Thoughts and Behaviors: pt continues to report non command auditory hallucinations - Suicidal Ideation Suicidal Ideation: No - Homicidal Ideation Homicidal Ideation: No Goal/Treatment Plan - Goal/Treatment Plan Need for Continued Stay: Severe depression anxiety, Discharge may exacerbated symptoms, Severe functional impairment Progress Toward Problem(s) and Goals/Treatment Plan: thorazine 200mg daily and 300mg qhs prazosin for PTSD symptoms, night harris, continue with prozac and neurontin lithium 600mg bid, follow up on lithium level CBT , group and supportive therapy Estimated Date of D/C: 11/20/17
[2017-11-18] MEDS: Albuterol 0.083% Inhal Sol (2.5 mg/3 mL) UD INH PRN (21:00)
[2017-11-19] MEDS: Insulin Regular 100 units/ml SC SCH ×2 (09:26→16:43)
--- NOTE | 2017-11-19 15:02 | PCM.PYCHPN ---
Psychiatric Progress Note - Psychiatric Progress Note Patient seen today, length of contact: pt seen today and evaluated . Patient Chief Complaint: I am anxious about going to the [facility] Problems Identified/Issues Discussed: pt evaluated , reported feeling more stavble, better sleep, clearing off of the auditory hallucinations,less paranoid, interacting with staff and other patients , anxious about going back to the [facility], CBT provided, lithium level noted 0.6 no reported side effects of medications denied any current thoughts of self harm Medical Problems: diabetes DSM 5 Symptoms Update: bipolar disorder borderline personality disorder Medication Change: No Medical Record Reviewed: Yes Mental Status Examination - Cognitive Function Orientation: Person, Place, Situation, Time Memory: Intact Attention: WNL Concentration: WNL Association: WNL Fund of Knowledge: [facility] Decription of patient's judgement and insights: partial insight , poor judgment and poor impulse control - Mood Mood: Depressed, Anxious - Affect Affect: Constricted - Speech Speech: Appropriate - Formal Thought Process Formal Thought Process: Paranoia Psychotic Thoughts and Behaviors: pt continues to report non command auditory hallucinations - Suicidal Ideation Suicidal Ideation: No - Homicidal Ideation Homicidal Ideation: No Goal/Treatment Plan - Goal/Treatment Plan Need for Continued Stay: Severe depression anxiety, Discharge may exacerbated symptoms, Severe functional impairment Progress Toward Problem(s) and Goals/Treatment Plan: thorazine 200mg daily and 300mg qhs prazosin for PTSD symptoms, night harris, continue with prozac and neurontin lithium 600mg bid, , lithium level 0.6 CBT , group and supportive therapy Estimated Date of D/C: 11/20/17
[2017-11-19 17:30] VITALS: TEMP 98.1
[2017-11-19] MEDS: Albuterol 0.083% Inhal Sol (2.5 mg/3 mL) UD INH PRN (18:13)
[2017-11-20 01:50] VITALS: BP 137/73; PULSE 95; RESP 18
[2017-11-20] MEDS: Insulin Regular 100 units/ml SC SCH (09:52)
--- NOTE | 2017-11-20 11:43 | PCM.PYCHDC ---
Mental Status Examination - Mental Status Examination Orientation: Person, Place, Situation Memory: Intact Mood: Neutral Affect: Broad Speech: Appropriate Attention: WNL Concentration: WNL Association: WNL Fund of Knowledge: WNL Formal Thought Process: No Impairment Description of patient's judgement and insight: partial insight , poor judgment Psychotic Thoughts and Behaviors: pt denied any current perceptual disturbances, denied any current psychotic symptoms, non elicited Suicidal Ideation: No Current Homicidal Ideation?: No Discharge Summary - Discharge Note Reason for Hospitalization: This is a 22 yr old female who has h/o Bipolar disorder and borderline personality disorder and was recently d/c from [facility] [place] and readmitted because pt has been having suicidal thoughts and plan to overdose on heroin and cut her wrist .pt is hearing the voice of devil telling her she only has one month to live.pt has been prescribed lithium,thorazine ,prozac and neurontin and reports compliance with meds. Psychiatric History (includes Medical, Family, Personal Hx): fir depression, mood and psychosis Laboratory Data: Abnormal Lab Results 11/19/17 11/20/17 16:42 06:23 POC Glucose (mg/dL) 229 H 226 H Consultations:: List each consultation separately and include: 1. Reason for request. 2. Findings. 3. Follow-up Summary of Hospital Course include:: 1. Description of specific treatment plan utilized for patients during their course of treatmen. 2. Summarize the time- course for resolution of acute symptoms and/or regressed behaviors. 3. Describe issues identified and worked on during hospitalization. 4. Describe medication utilized. 5. Describe medical problems identified and treated. 6. Reassessment of suicide risk Summary of Hospital Course: pt on admission presented with paranoid delusions,auditory hallucinations , suicidal ideations , labile mood and affect pt was restarted on lithium 600mg bid, zoloft 40mg daily, she was placed on thorazine and it was uptitrated to 500mg daily also trazodone 200mg qhs and prazosin 1mg qhs for nightmares and flashbacks CBT, group and supportive therapy were provided pt attended groups, participated in treatment , was compliant with medications, no reported side effects. lithium level noted to be 0.6 gradually presented with brighter mood and affect with clearing off of the paranoid delusions and the auditory hallucinations on discharge pt mental status was stable, on discharge pt denied any current suicidal or homicidal ideations denied any current perceptual disturbances, denied any current psychotic symptoms and non were elicited , mental status was stable follow up arranged by medical social worker at [facility] partial program - Final Diagnosis (DSM 5) Condition upon Discharge: GOOD DSM 5: bipolar disorder borderline personality disorder post traumatic stress disorder borderline personality disorder Disposition: HOME/ ROUTINE Follow-up Treatment Plan: thorazine 200mg daily and 300mg qhs prazosin for PTSD symptoms, night harris, continue with prozac and neurontin lithium 600mg bid, , lithium level 0.6 CBT , group and supportive therapy Prescriptions/Medication Reconciliation: chlorproMAZINE [Thorazine] 200 mg PO DAILY 30 Days #60 tab chlorproMAZINE [Thorazine] 300 mg PO HS 30 Days #90 tab FLUoxetine [Prozac] 40 mg PO DAILY 30 Days #60 cap Gabapentin [Neurontin] 300 mg PO TID 30 Days #90 cap hydrOXYzine Pamoate [Vistaril] 50 mg PO Q8 PRN 30 Days #90 cap PRN Reason: Anxiety Hoagland Carbonate [Hoagland Carbonate 300MG] 600 mg PO BID 30 Days #60 cap Prazosin HCl [Minipress] 1 mg PO HS 30 Days #30 cap traZODone [Desyrel] 100 mg PO HS 30 Days #30 tab - Smoking Cessation Smoking Cessation Medication prescribed: No - Antipsychotic Medications Pt discharged on 2 or more routine antipsychotic medications: No
== END 2017-11-20 15:35 | disposition home or self-care (01) | DRG 430 ==
LOC: H.ER 17:04 → H.ERHOLD 11-14 01:25 → H.PSYCH 11-14 03:09
PROVIDERS: ADMIT Psychiatry & Neurology Psychiatry; ATTEND Psychiatry & Neurology Psychiatry
PROC: GZHZZZZ Group Psychotherapy (ICD-10-PCS; principal; 2017-11-14)
PROC: GZ58ZZZ Individual Psychotherapy, Cognitive-Behavioral (ICD-10-PCS; 2017-11-14)
PROC: GZ56ZZZ Individual Psychotherapy, Supportive (ICD-10-PCS; 2017-11-14)
DX: F31.9 Bipolar disorder, unspecified (principal); F60.3 Borderline personality disorder; F43.10 Post-traumatic stress disorder, unspecified; R45.851 Suicidal ideations; E11.9 Type 2 diabetes mellitus without complications; J45.909 Unspecified asthma, uncomplicated; F17.210 Nicotine dependence, cigarettes, uncomplicated; E78.00 Pure hypercholesterolemia, unspecified; I10 Essential (primary) hypertension; E03.9 Hypothyroidism, unspecified; F51.5 Nightmare disorder; Z91.013 Allergy to seafood

== ENCOUNTER 2017-12-10 14:23 | Inpatient (IN) | payer MEDICAID ==
[2017-12-10 14:23] VITALS: BMI 38.0
[2017-12-10 15:21] LABS: BASO % 0.2 % (0.0-2.0); EOS # 0.3 K/uL (0.0-0.7); EOS % 1.8 % (0.0-4.0); HEMOGLOBIN 11.4 g/dL (12.0-16.0); LYMPH # 1.7 K/uL (1.0-4.3); LYMPH % 11.1 % (20.0-40.0); MEAN CELL VOLUME 77.3 fl (81.0-99.0); MEAN CORPUSCULAR HGB CONC 32.4 g/dL (33.0-37.0); MEAN PLATELET VOLUME 7.7 fl (7.2-11.7); MONO # 0.8 K/uL (0.0-0.8); MONO % 5.4 % (0.0-10.0); NEUT # 12.6 K/uL (1.8-7.0); NEUT % 81.5 % (50.0-75.0); RBC 4.56 Mil/uL (3.80-5.20); RED CELL DISTRIBUTION WIDTH 15.7 % (11.5-14.5); WHITE BLOOD COUNT 15.5 K/uL (4.8-10.8)
[2017-12-10 15:34] LABS: SQUAMOUS EPITHIAL 3 /hpf (0-5); URINE BILIRUBIN NEGATIVE (NEGATIVE); URINE BLOOD NEGATIVE (NEGATIVE); URINE CLARITY CLEAR (Clear); URINE COLOR STRAW (YELLOW); URINE GLUCOSE (UA) NEG (Normal); URINE LEUKOCYTE ESTERASE TRACE Leu/uL (Negative); URINE PROTEIN NEGATIVE (NEGATIVE); URINE UROBILINOGEN 0.2-1.0 mg/dL (0.2-1.0)
[2017-12-10 15:40] LABS: ALB/GLOB RATIO 1.3 (1.0-2.1); ALBUMIN 4.4 g/dL (3.5-5.0); ALT/SGPT 39 U/L (9-52); AST/SGOT 24 U/L (14-36); BARBITURATES, UR NEGATIVE (NEGATIVE); BENZODIAZEPINES, UR NEGATIVE (NEGATIVE); BLOOD UREA NITROGEN 6 mg/dl (7-17); CALCIUM 9.8 mg/dL (8.4-10.2); GFR NON-AFRICAN AMERICAN > 60; OPIATES, UR NEGATIVE (NEGATIVE); PHENCYCLIDINE, UR NEGATIVE (NEGATIVE)
--- NOTE | 2017-12-10 16:34 | RAD ---
Date of service: 12/10/2017 HISTORY: psych COMPARISON: 11/14/2017. TECHNIQUE: Chest PA and lateral FINDINGS: LUNGS: No active pulmonary disease. PLEURA: No significant pleural effusion identified. No pneumothorax apparent. CARDIOVASCULAR: Normal. OSSEOUS STRUCTURES: No significant abnormalities. VISUALIZED UPPER ABDOMEN: Normal. OTHER FINDINGS: None. IMPRESSION: No active disease. No significant interval change compared to the prior examination(s).
--- NOTE | 2017-12-10 17:27 | ED PDOC ---
HPI: Psych/Substance Abuse Time Seen by Provider: 12/10/17 14:40 Chief Complaint (Nursing): Psychiatric Evaluation Chief Complaint (Provider): psychiatric evaluation History Per: Patient History/Exam Limitations: no limitations Onset/Duration Of Symptoms: Hrs (today) Associated Symptoms: Depression, Suicidal Thoughts. denies: Suicidal Plan Additional Complaint(s): Desirae Mendez is a 22 year old female, with a past medical history of psychiatric disorders (PTSD, bipolar, schizophrenia), who presents to the emergency department accompanied by staff from day program for evaluation of suicidal ideation today. Patient resides at a senior living and attends day program. She is unhappy at her senior living, does not like the staff or clients and said she is being "bullied" there and does not want to go back. She was expressing suicidal ideation to staff at her day program with no plan or attempt. No further medical complaints. Pt. had a recent admission at [facility] x 4 days. PMD: None provided. Past Medical History Reviewed: Historical Data, Nursing Documentation, Vital Signs Vital Signs: Last Vital Signs Temp 98.5 F 12/10/17 14:30 Pulse 112 H 12/10/17 14:30 Resp 20 12/10/17 14:30 BP 143/91 H 12/10/17 14:30 Pulse Ox 100 12/10/17 14:30 - Medical History PMH: Anxiety, Asthma, Bipolar Disorder, Depression, HTN, Hypercholesterolemia, Hypothyroidism, Personality Disorder, Post Traumatic Stress Disorder, Schizophrenia Denies: Diabetes, Hepatitis, HIV, Chronic Kidney Disease, Seizures, Sexually Transmitted Disease - Surgical History Surgical History: Tonsillectomy - Family History Family History: States: Unknown Family Hx - Home Medications Home Medications: Ambulatory Orders Medication Instructions Recorded Albuterol HFA [Ventolin HFA 90 2 puff IH [id number] PRN inhaler 11/03/17 mcg/actuation (8 g)] Pantoprazole [Protonix EC Tab] 40 mg PO 0600 ect 11/03/17 chlorproMAZINE [Thorazine] 300 mg PO HS 11/29/17 Cefpodoxime [Vantin] 100 mg PO Q12 #6 tab 12/03/17 FLUoxetine [Prozac] 40 mg PO DAILY 14 Days #14 cap 12/03/17 [place] Carbonate [[place] 600 mg PO BID 14 Days #28 cap 12/03/17 Carbonate 300MG] Prazosin HCl [Minipress] 2 mg PO HS 14 Days #14 cap 12/03/17 metFORMIN [glucOPHAGE] 500 mg PO BID #28 tab 12/03/17 traZODone [Desyrel] 100 mg PO HS 14 Days #14 tab 12/03/17 chlorproMAZINE [chlorpromazine HCl] 100 mg PO BID #30 tab 12/04/17 - Allergies Allergies/Adverse Reactions: Allergies Allergy/AdvReac Type Severity Reaction Status Date / Time haloperidol [From Haldol] Allergy ANAPHYLAXIS Verified 12/10/17 14:30 risperidone [From Risperdal] Allergy ANAPHYLAXIS Verified 12/10/17 14:30 shellfish derived Allergy ANAPHYLAXIS Verified 12/10/17 14:30 seafood Allergy ANAPHYLAXIS Uncoded 12/10/17 14:30 Review of Systems ROS Statement: Except As Marked, All Systems Reviewed And Found Negative Psych: Positive for: Suicidal ideation (no plan or attempt) Physical Exam - Reviewed Nursing Documentation Reviewed: Yes Vital Signs Reviewed: Yes - Physical Exam Appears: Positive for: No Acute Distress Head Exam: Positive for: ATRAUMATIC, NORMOCEPHALIC Skin: Positive for: Normal Color, Warm, Dry Eye Exam: Positive for: Normal appearance, EOMI, PERRL Neck: Positive for: Painless ROM Cardiovascular/Chest: Positive for: Regular Rate, Rhythm. Negative for: Murmur Respiratory: Positive for: Normal Breath Sounds. Negative for: Respiratory Distress Gastrointestinal/Abdominal: Positive for: Normal Exam, Soft. Negative for: Tenderness Extremity: Positive for: Normal ROM (upper and lower extremities). 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 Pt. became agitated during ED stay, IM ativan given with symptomatic improvement, pt. now resting comfortably. Scribe Attestation: Documented by Ron Craig, acting as a scribe for Ingrid Powers PA-C Provider Scribe Attestation: All medical record entries made by the Scribe were at my direction and personally dictated by me. I have reviewed the chart and agree that the record accurately reflects my personal performance of the history, physical exam, medical decision making, and the department course for this patient. I have also personally directed, reviewed, and agree with the discharge instructions and disposition. Disposition - Clinical Impression Clinical Impression: Bipolar 1 disorder, Encounter for psychiatric assessment - Patient ED Disposition Is Patient to be Admitted: Yes - Disposition Disposition Time: 19:30 Condition: STABLE
[2017-12-10] MEDS ORDERED: DiphenhydrAMINE 50 mg/ml Inj IM PRN (20:55)
[2017-12-10] MEDS ORDERED: Alum-Mag Hydrox-Simethicone Susp (30 mL) PO PRN (20:55)
--- NOTE | 2017-12-11 | PCM.BM ---
<Radha Hernadez - Last Filed: 12/11/17 00:01> Treatment Plan Problems - Problems identified on initial assessmt Suicidal ideas Date Initiated: 12/10/17 Time Initiated: 23:59 Assessment reference: NA Status: Active Ineffective Impulse control Date Initiated: 12/11/17 Time Initiated: 00:00 Assessment reference: NA Status: Active Ineffective coping Date Initiated: 12/11/17 Time Initiated: 00:00 Assessment reference: NA Status: Active Treatment assets and liabiliti Patient Assests: adapts well, cooperative, ADL independent, negotiates basic needs, good interpersonal skills Patient Liabilities: relationship conflicts, medical problems (Borderline personality do) - Milieu Protocol Maintain good personal hygiene: daily Remind patient to perform daily oral care , every shift Encourage regular showers, every shift Assist patient to perform ADL's Conduct patient checks and document Observation sheet: Q15 minutes Maintain personal safety: every shift Educate patient to report safety concerns to staff, every shift Monitor environment for contraband/sharps Medication safety: Monitor for expected outcome, potential side effects: every shift, Assess barriers to learning: every shift, Assess readiness for medication education: every shift <MaggieRonnieDevi - Last Filed: 12/11/17 16:01> Treatment assets and liabiliti Patient Assests: adapts well, cooperative, ADL independent, physically healthy, negotiates basic needs Patient Liabilities: live alone (unhappy with [facility] ; id'ed [facility] as primary stressor), relationship conflicts, medical problems Family Contact Family involvement: Famliy/SO not involved Family contact: Patient declines to allow family contact at present - Outside Agency Agency 1 Care involvment: Following patient during stay, Information-sharing Agency contact name: [facility] ([facility]) Agency contact number: [phone] Agency 2 Care involvment: Following patient during stay, Information-sharing, Other Agency contact name: [facility] ([facility]/Dr. Sheets) Agency contact number: [phone] - Goals for Treatment Patient goals for treatment: Patient to continue stabilization on 3NP through medication management and group/supportive therapy to address sxs of depression , decrease AH, eliminate SI and improve sleep. Patient to be encouraged to attend groups regularly to promote self-awareness, anger management, and improve insight, compliance, coping skills and self-esteem. Patient to be provided with referral for appropriate level of aftercare to reduce risk of future hospitalizations and ensure safety in the community. Discharge/Continuing Care - Education Needs Education Needs: Patient Medication, Patient Diagnosis/Disease Process, Patient Coping Skills, Patient Anger Management skills, Patient Placement options, Patient Aftercare Safety Plan - Discharge Discharge Criteria: Tolerates medication w/o severe side effects, Free of Suicidal thoughts, Free of agitation, Normal sleep pattern, Ability to care for self Discharge to:: [facility], Other ([facility]) - Treatment Team Participation Patient/Family/SO Statement: 12/11/17 16:01 Patient was invited to tx team this morning to discuss progress on 3NP and tx goals. Pt. continues to report sxs of depression, overwhelming auditory hallucinations and sleep disturbances. Pt. denied current SI/HI and was able to contract for safety on 3NP. Pt. identified being unhappy with current [facility] placement as primary stressor contributing to acute onset of sxs. Pt. however reported wanting to return to [facility] upon discharge so she can continue to attend [facility], stating I really love going. Validation and emotional support provided. Medication changes discussed at length. Pt. remains in good behavioral control. Pt. visible on 3NP and observed socializing appropriately with select peers. Pt. provided consent for staff to contact [facility] ([facility]) and outpatient providers ([facility]/Dr. Sheets). Discussed with Family/SO: No Was Patient/Family/SO present at Treatment Team Meeting: Yes
--- NOTE | 2017-12-11 07:51 | CARD ---
APPROVED REPORT Date of service: 12/10/2017 EKG Measurement Heart [id number] <Conclusion> Normal sinus rhythm Moderate voltage criteria for LVH, may be normal variant Borderline ECG
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
[2017-12-12] MEDS: Albuterol HFA 90 mcg/actuation (8 g) INH PRN (08:50)
--- NOTE | 2017-12-12 10:41 | PCM.PYCHPN ---
Psychiatric Progress Note - Psychiatric Progress Note Patient seen today, length of contact: Pt evaluated, cased discussed w/ team, chart reviewed Patient Chief Complaint: CAH to kill herself Problems Identified/Issues Discussed: Patient continues to report CAH telling her to kill herself by cutting her wrist or overdose on medications. She can contract for safety at this time, but reports that she is disturbed by these voices. She continues to report feeling depressed and anxious, but seems inappropriately happy at times. No adverse effects to medications reported. Medication Change: No Medical Record Reviewed: Yes Consults ordered or reviewed: Medicine consult Mental Status Examination - Cognitive Function Orientation: Person, Place, Situation, Time Memory: Intact Association: Loose Decription of patient's judgement and insights: Poor I/J - Mood Mood: Depressed, Anxious - Affect Affect: Constricted, Depressed - Formal Thought Process Formal Thought Process: Hallucinations Psychotic Thoughts and Behaviors: +CAH to kill herself - Suicidal Ideation Suicidal Ideation: Yes Plan: CAH to kill herself - Homicidal Ideation Homicidal Ideation: No Goal/Treatment Plan - Goal/Treatment Plan Need for Continued Stay: Remain at risks for inpatient hospitalization, Severe depression anxiety, Discharge may exacerbated symptoms Progress Toward Problem(s) and Goals/Treatment Plan: Schizoaffective Disorder, PTSD -Individual and group therapy -Continue [place], Cogentin, Perphenazine, Prazosin and Trazodone -Medicine consult -Psychoeducation -Dispostion planning Estimated Date of D/C: 12/18/17 - Smoking Cessation Smoking Cessation Initiated: Yes
[2017-12-12] MEDS: Benzocaine/Menthol (Cepacol) Lozenge PO PRN ×2 (13:07→16:43)
[2017-12-12] MEDS: Magnesium Hydroxide Susp 30 ml UD PO PRN (21:37)
[2017-12-12] MEDS: Bacitracin OINT 15GM TOP SCH (21:40)
--- NOTE | 2017-12-13 08:37 | PCM.PYCHPN ---
Psychiatric Progress Note - Psychiatric Progress Note Patient seen today, length of contact: Pt evaluated, cased discussed w/ team, chart reviewed Patient Chief Complaint: CAH to kill herself Problems Identified/Issues Discussed: Patient continues to report intermittent AH, but states that she last had CAH to harm herself yesterday. She states that she scratched her arm with her finger nails yesterday in response to AH and self injurious ideation. She denies current ideation to harm self and can contract for safety. She continues to report feeling depressed and anxious. 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 Medication Change: No Medical Record Reviewed: Yes Consults ordered or reviewed: Medicine consult Mental Status Examination - Cognitive Function Orientation: Person, Place, Situation, Time Memory: Intact Attention: Poor Concentration: Poor Association: Loose Decription of patient's judgement and insights: Poor I/J - Mood Mood: Depressed, Anxious - Affect Affect: Constricted, Depressed - Formal Thought Process Formal Thought Process: Hallucinations Psychotic Thoughts and Behaviors: +AH - Suicidal Ideation Suicidal Ideation: No Plan: Denies current suicidal ideation, but recently scratched her arms - Homicidal Ideation Homicidal Ideation: No Goal/Treatment Plan - Goal/Treatment Plan Need for Continued Stay: Remain at risks for inpatient hospitalization, Severe depression anxiety, Discharge may exacerbated symptoms Progress Toward Problem(s) and Goals/Treatment Plan: Schizoaffective Disorder, PTSD -Individual and group therapy -Continue [place], Cogentin, Perphenazine, Prazosin and Trazodone -Medicine consult -Psychoeducation -Dispostion planning Estimated Date of D/C: 12/18/17
[2017-12-13] MEDS: Benzocaine/Menthol (Cepacol) Lozenge PO PRN ×4 (08:44→21:18)
[2017-12-13] MEDS: Bacitracin OINT 15GM TOP SCH ×2 (08:45→17:17)
[2017-12-13] MEDS: Albuterol HFA 90 mcg/actuation (8 g) INH PRN ×3 (09:19→21:18)
[2017-12-13] MEDS ORDERED: guaiFENesin DM 100 mg-10 mg/5 ml UD PO PRN (11:42)
[2017-12-13] MEDS: guaiFENesin 200 mg/10 ml Syrup UD PO PRN (15:23)
[2017-12-13 16:09] LABS: SQUAMOUS EPITHIAL 1 /hpf (0-5); URINE BILIRUBIN NEGATIVE (NEGATIVE); URINE BLOOD NEGATIVE (NEGATIVE); URINE CLARITY CLEAR (Clear); URINE COLOR STRAW (YELLOW); URINE GLUCOSE (UA) NEG (Normal); URINE LEUKOCYTE ESTERASE TRACE Leu/uL (Negative); URINE PROTEIN NEGATIVE (NEGATIVE); URINE UROBILINOGEN 0.2-1.0 mg/dL (0.2-1.0)
[2017-12-14] MEDS: Bacitracin OINT 15GM TOP SCH ×2 (09:32→19:40)
--- NOTE | 2017-12-14 15:53 | PCM.PYCHPN ---
Psychiatric Progress Note - Psychiatric Progress Note Patient seen today, length of contact: Pt evaluated, cased discussed w/ team, chart reviewed Patient Chief Complaint: I was frustrated at my mother so I tried to hurt myself Problems Identified/Issues Discussed: pt evaluated , met with DD adult protective caseworker in presence of patient pt reported that she continues to have low frustration tolerance, had a fight with her mother yesterday leading to patient hurting herself using her nails to inflict self mutilation on her arm discussed with pt need to develop healthier coping skills with stress, rather than acting out and self harm, pt reported continues to experience non command auditory hallucinations, discussed increasing dose of perphenazine , encouraged pt to attend groups, pt denied current thoughts of sef harm , denied homicidal ideation Medical Problems: multiple hospitalizations, history of non compliance DSM 5 Symptoms Update: borderline personality disorder hx of schizoaffective disorder PTSD Medication Change: Yes (increase perphenazine) Medical Record Reviewed: Yes Mental Status Examination - Cognitive Function Orientation: Person, Place, Situation, Time Memory: Intact Attention: Poor Concentration: Poor Association: Loose Decription of patient's judgement and insights: POOR INSIGHT AND JUDGMENT - Mood Mood: Depressed, Anxious - Affect Affect: Constricted, Depressed - Speech Speech: Appropriate - Formal Thought Process Formal Thought Process: Hallucinations Psychotic Thoughts and Behaviors: pt reports non command auditory hallucinations - Suicidal Ideation Suicidal Ideation: No - Homicidal Ideation Homicidal Ideation: No Goal/Treatment Plan - Goal/Treatment Plan Need for Continued Stay: Remain at risks for inpatient hospitalization, Severe depression anxiety, Discharge may exacerbated symptoms Progress Toward Problem(s) and Goals/Treatment Plan: increase perphenazine 4mg tid cogentin 1mg tid trazodone 300 mg qhs prazosin 1mg qhs neurontin 300mg tid CBT group and supportive therapy Estimated Date of D/C: 12/18/17
[2017-12-14] MEDS: guaiFENesin 200 mg/10 ml Syrup UD PO PRN (16:27)
[2017-12-14] MEDS: Albuterol HFA 90 mcg/actuation (8 g) INH PRN (21:04)
[2017-12-14] MEDS: Benzocaine/Menthol (Cepacol) Lozenge PO PRN (21:05)
--- NOTE | 2017-12-15 09:39 | CP.PCM.PN ---
Subjective - Date & Time of Evaluation Date of Evaluation: 12/15/17 Time of Evaluation: 09:37 - Subjective Subjective: pt doing well. no f/c, n/v/d. still w/ cough/congestion and dysuria. all c/s and labs negative for infection. improvemnt w/ symptomatic tx Objective - Vital Signs/Intake and Output Vital Signs (last 24 hours): Temp Pulse Resp BP Pulse Ox 97.5 F L 101 H 20 136/78 100 12/15/17 09:19 12/15/17 09:19 12/15/17 09:19 12/15/17 09:19 12/10/17 20:27 - Medications Medications: Current Medications Acetaminophen (Tylenol 325mg Tab) 650 mg PO Q4 PRN PRN Reason: Pain, moderate (4-7) Last Admin: 12/13/17 21:20 Dose: 650 mg Al Hydrox/Mg Hydrox/Simethicone (Maalox Plus 30 Ml) 30 ml PO Q4 PRN PRN Reason: Dyspepsia Albuterol (Ventolin Hfa 90 Mcg/Actuation (8 G)) 2 puff INH RQ4 PRN PRN Reason: Shortness of Breath Last Admin: 12/14/17 21:04 Dose: 2 inh Bacitracin (Bacitracin Oint) 1 applic TOP BID [facility] Last Admin: 12/14/17 19:40 Dose: Not Given Benzocaine/Menthol (Cepacol Sore Throat) 1 eliel PO Q2 PRN PRN Reason: Sore Throat Last Admin: 12/14/17 21:05 Dose: 1 eliel Benztropine Mesylate (Cogentin) 0.5 mg PO TID [facility] Last Admin: 12/14/17 16:26 Dose: 0.5 mg Chlorpromazine (Thorazine) 100 mg PO Q6 PRN PRN Reason: Agitation Last Admin: 12/12/17 21:33 Dose: 100 mg Chlorpromazine (Thorazine) 50 mg IM Q6 PRN PRN Reason: Agitation Dicyclomine HCl (Bentyl) 10 mg PO Q6H PRN PRN Reason: Stomach Cramps Last Admin: 12/12/17 16:42 Dose: 10 mg Diphenhydramine HCl (Benadryl) 50 mg IM Q6 PRN PRN Reason: Extrapyramidal S/S Unable PO Diphenhydramine HCl (Benadryl) 50 mg PO Q6 PRN PRN Reason: Extrapyramidal Symptoms Fluticasone Propionate (Flonase) 1 spr IRAJ BID [facility] Last Admin: 12/14/17 19:40 Dose: Not Given Gabapentin (Neurontin) 300 mg PO TID [facility] Last Admin: 12/14/17 16:26 Dose: 300 mg Guaifenesin (Robitussin) 200 mg PO Q6 PRN PRN Reason: Cough Last Admin: 12/14/17 16:27 Dose: 200 mg [place] Carbonate ([place] Carbonate 300mg) 600 mg PO Q12 [facility] Last Admin: 12/14/17 21:04 Dose: 600 mg Loperamide HCl (Imodium) 2 mg PO QID PRN PRN Reason: Diarrhea Last Admin: 12/14/17 13:45 Dose: 2 mg Loratadine (Claritin) 10 mg PO DAILY [facility] Last Admin: 12/14/17 09:24 Dose: 10 mg Lorazepam (Ativan) 1 mg PO Q8 PRN PRN Reason: Anxiety/Agitation Last Admin: 12/14/17 19:43 Dose: 1 mg Magnesium Hydroxide (Milk Of Magnesia) 30 ml PO HS PRN PRN Reason: Constipation Last Admin: 12/12/17 21:37 Dose: 30 ml Metformin HCl (Glucophage) 500 mg PO BID [facility] Last Admin: 12/14/17 16:26 Dose: 500 mg Nicotine (Nicoderm Cq) 1 patch TD DAILY [facility] Last Admin: 12/14/17 09:24 Dose: 1 patch Ondansetron HCl (Zofran Tab) 4 mg PO Q8 PRN PRN Reason: Nausea/Vomiting Last Admin: 12/11/17 19:12 Dose: 4 mg Perphenazine (Perphenazine) 4 mg PO TID [facility] Last Admin: 12/14/17 16:26 Dose: 4 mg Prazosin HCl (Minipress) 2 mg PO HS [facility] Last Admin: 12/14/17 21:04 Dose: 2 mg Trazodone HCl (Desyrel) 300 mg PO HS [facility] Last Admin: 12/14/17 21:04 Dose: 300 mg - Labs Labs: 12/10/17 15:10 12/10/17 15:10 - Constitutional Appears: Well, Non-toxic, No Acute Distress - Head Exam Head Exam: ATRAUMATIC, NORMAL INSPECTION, NORMOCEPHALIC - Eye Exam Eye Exam: EOMI, Normal appearance, PERRL Pupil Exam: NORMAL ACCOMODATION, PERRL - ENT Exam ENT Exam: Mucous Membranes Moist, Normal Exam, Normal Oropharynx - Neck Exam Neck Exam: Full ROM, Normal Inspection. absent: Lymphadenopathy - Respiratory Exam Respiratory Exam: Clear to Ausculation Bilateral, NORMAL BREATHING PATTERN - Cardiovascular Exam Cardiovascular Exam: REGULAR RHYTHM, RRR, +S1, +S2. absent: Murmur - GI/Abdominal Exam GI & Abdominal Exam: Soft, Normal Bowel Sounds. absent: Tenderness - Extremities Exam Extremities Exam: Full ROM, Normal Capillary Refill, Normal Inspection. absent: Joint Swelling, Pedal Edema - Back Exam Back Exam: NORMAL INSPECTION - Neurological Exam Neurological Exam: Alert, Awake, CN II-XII Intact, Normal Gait, Oriented x3 - Psychiatric Exam Psychiatric exam: Normal Affect, Normal Mood - Skin Skin Exam: Dry, Intact, Normal Color, Warm Assessment and Plan (1) URI (upper respiratory infection) Assessment & Plan: robitussin prn throat c/s negative Status: Acute (2) Dysuria Assessment & Plan: fluids uirne c/s Status: Acute (3) Bipolar 1 disorder Assessment & Plan: psych meds, interventions, therapies Status: Acute (4) DVT prophylaxis Assessment & Plan: ambulation Status: Acute (5) Diabetes type 2, controlled Assessment & Plan: metofrmin, fsbg, diet Status: Acute
--- NOTE | 2017-12-15 14:39 | PCM.PYCHPN ---
Psychiatric Progress Note - Psychiatric Progress Note Patient seen today, length of contact: Pt evaluated, cased discussed w/ team, chart reviewed Patient Chief Complaint: I have hard time to sleep at night Problems Identified/Issues Discussed: pt evaluated , reported feeling better with perphenazine with clearing off of the auditory hallucinations, reported decreased sleep with early insomnia denied any current thoughts of self harm on the unit, discussed the need to develop healthy coping skills, encouraged to attend groups, no reported side effects of medications Medical Problems: multiple hospitalizations, history of non compliance DSM 5 Symptoms Update: bordrline personaity disorder post traumatic stress disorder history of schizoaffective disorder Medication Change: Yes (start thorazine at night ) Medical Record Reviewed: Yes Mental Status Examination - Cognitive Function Orientation: Person, Place, Situation, Time Memory: Intact Attention: Poor Concentration: Poor Association: Loose Decription of patient's judgement and insights: POOR INSIGHT AND JUDGMENT - Mood Mood: Depressed, Anxious - Affect Affect: Constricted, Depressed - Speech Speech: Appropriate - Formal Thought Process Formal Thought Process: Hallucinations Psychotic Thoughts and Behaviors: pt reports non command auditory hallucinations - Suicidal Ideation Suicidal Ideation: No - Homicidal Ideation Homicidal Ideation: No Goal/Treatment Plan - Goal/Treatment Plan Need for Continued Stay: Remain at risks for inpatient hospitalization, Severe depression anxiety, Discharge may exacerbated symptoms Progress Toward Problem(s) and Goals/Treatment Plan: increase perphenazine 4mg tid cogentin 1mg tid thorazine 200mg qhs prazosin 1mg qhs neurontin 300mg tid CBT group and supportive therapy Estimated Date of D/C: 12/18/17
[2017-12-15] MEDS: Bacitracin OINT 15GM TOP SCH (19:14)
[2017-12-16] MEDS: Bacitracin OINT 15GM TOP SCH ×2 (11:03→17:33)
--- NOTE | 2017-12-16 19:18 | PCM.PYCHPN ---
Psychiatric Progress Note - Psychiatric Progress Note Patient seen today, length of contact: Pt evaluated, cased discussed w/ team, chart reviewed Patient Chief Complaint: I am hearing voices making me anxious I do not want to go to the shelter Problems Identified/Issues Discussed: pt evaluated , presenting with anxious mood and labile affect, pt stated she does not want to go back to the shelter, stating she has been hearing more voices putting her down and making her feel distressed, stating she started to experience some stiffness from perphenazine, discussed with pt other possible options for antipsychotics, pt agreed to be started on seroquel , pt continues to need a lot of redirection with poor coping skills and tendency to act out CBT provided discussing healthier coping skills other than self harm , encouraged pt to attend groups pt denied command hallucinations, denied suicidal or homicidal ideation Medical Problems: multiple hospitalizations, history of non compliance DSM 5 Symptoms Update: borderline personality disorder PTSD hx of schizoaffective disorder Medication Change: Yes (start seroquel) Medical Record Reviewed: Yes Mental Status Examination - Cognitive Function Orientation: Person, Place, Situation, Time Memory: Intact Attention: Poor Concentration: Poor Association: Loose Decription of patient's judgement and insights: POOR INSIGHT AND JUDGMENT - Mood Mood: Depressed, Anxious - Affect Affect: Constricted, Depressed - Speech Speech: Appropriate - Formal Thought Process Formal Thought Process: Hallucinations Psychotic Thoughts and Behaviors: pt reports non command auditory hallucinations - Suicidal Ideation Suicidal Ideation: No - Homicidal Ideation Homicidal Ideation: No Goal/Treatment Plan - Goal/Treatment Plan Need for Continued Stay: Remain at risks for inpatient hospitalization, Severe depression anxiety, Discharge may exacerbated symptoms Progress Toward Problem(s) and Goals/Treatment Plan: decrease perphenazine 2mg tid, start seoquel 300mg qhs with plan to cros taper perphenazine with seroquel cogentin 1mg tid lithium 600mg bid, follow up on lithium level and adjust as needed prazosin 1mg qhs neurontin 300mg tid CBT group and supportive therapy Estimated Date of D/C: 12/21/17
[2017-12-16] MEDS: Benzocaine/Menthol (Cepacol) Lozenge PO PRN (21:14)
[2017-12-16] MEDS: Magnesium Hydroxide Susp 30 ml UD PO PRN (21:17)
[2017-12-17] MEDS: Bacitracin OINT 15GM TOP SCH ×2 (10:23→21:06)
[2017-12-17] MEDS: guaiFENesin 200 mg/10 ml Syrup UD PO PRN (10:24)
[2017-12-17] MEDS: Albuterol HFA 90 mcg/actuation (8 g) INH PRN (13:20)
[2017-12-18] MEDS: Benzocaine/Menthol (Cepacol) Lozenge PO PRN ×2 (08:53→13:45)
[2017-12-18] MEDS: Bacitracin OINT 15GM TOP SCH ×2 (09:04→17:20)
--- NOTE | 2017-12-18 18:56 | PCM.PYCHPN ---
Psychiatric Progress Note - Psychiatric Progress Note Patient seen today, length of contact: Pt evaluated, cased discussed w/ team, chart reviewed Patient Chief Complaint: came was feeling depressed today i had a verbal argument with a peer i was just trying to tell her phone was not on, per staff pt was redirectable , seen later with other peers, pt requires redirection at times by staff, has been seen in milieu Problems Identified/Issues Discussed: alteration in mood Medical Problems: per chart Diagnostic Results: per psychiatry per medicine per nursing per social work per recreational therapy DSM 5 Symptoms Update: some improvement mood irritability Medication Change: No Medical Record Reviewed: Yes Consults ordered or reviewed: pt seen by hospitalist Mental Status Examination - Cognitive Function Orientation: Person, Place, Situation, Time Memory: Intact Attention: Poor Concentration: Poor Association: Loose Fund of Knowledge: WNL Decription of patient's judgement and insights: impaired - Mood Mood: Depressed, Anxious - Affect Affect: Constricted, Depressed - Speech Speech: Appropriate - Formal Thought Process Formal Thought Process: Paranoia - Suicidal Ideation Suicidal Ideation: No - Homicidal Ideation Homicidal Ideation: No Goal/Treatment Plan - Goal/Treatment Plan Need for Continued Stay: Remain at risks for inpatient hospitalization, Severe depression anxiety, Discharge may exacerbated symptoms Progress Toward Problem(s) and Goals/Treatment Plan: inpt milieu adjust meds per clinical status vital signs and clinical observation per protocol and per clinical status discharge planning in progress lithium level 750657 0.9 Estimated Date of D/C: 12/21/17 - Smoking Cessation Smoking Cessation Initiated: No Reason for not providing: pt defers
[2017-12-18] MEDS: Bisacodyl 5mg EC Tab PO PRN (19:06)
--- NOTE | 2017-12-19 08:07 | CP.PCM.PN ---
Subjective - Date & Time of Evaluation Date of Evaluation: 12/19/17 Time of Evaluation: 08:05 - Subjective Subjective: pt doing well, c/o constipation. has h/o ibs. no f/c, n/v/d. am labs pending Objective - Vital Signs/Intake and Output Vital Signs (last 24 hours): Temp Pulse Resp BP Pulse Ox 97.9 F 106 H 20 140/80 100 12/18/17 16:57 12/18/17 16:57 12/18/17 16:57 12/18/17 16:57 12/10/17 20:27 - Medications Medications: Current Medications Acetaminophen (Tylenol 325mg Tab) 650 mg PO Q4 PRN PRN Reason: Pain, moderate (4-7) Last Admin: 12/13/17 21:20 Dose: 650 mg Al Hydrox/Mg Hydrox/Simethicone (Maalox Plus 30 Ml) 30 ml PO Q4 PRN PRN Reason: Dyspepsia Albuterol (Ventolin Hfa 90 Mcg/Actuation (8 G)) 2 puff INH RQ4 PRN PRN Reason: Shortness of Breath Last Admin: 12/17/17 13:20 Dose: 2 inh Bacitracin (Bacitracin Oint) 1 applic TOP BID [facility] Last Admin: 12/18/17 17:20 Dose: 1 applic Benzocaine/Menthol (Cepacol Sore Throat) 1 eliel PO Q2 PRN PRN Reason: Sore Throat Last Admin: 12/18/17 13:45 Dose: 1 eliel Benztropine Mesylate (Cogentin) 0.5 mg PO TID [facility] Last Admin: 12/18/17 17:16 Dose: 0.5 mg Bisacodyl (Dulcolax) 5 mg PO DAILY PRN PRN Reason: Constipation Last Admin: 12/18/17 19:06 Dose: 5 mg Chlorpromazine (Thorazine) 50 mg IM Q6 PRN PRN Reason: Agitation Chlorpromazine (Thorazine) 200 mg PO Q6 PRN PRN Reason: Agitation Last Admin: 12/18/17 15:38 Dose: 200 mg Dicyclomine HCl (Bentyl) 10 mg PO Q6H PRN PRN Reason: Stomach Cramps Last Admin: 12/12/17 16:42 Dose: 10 mg Diphenhydramine HCl (Benadryl) 50 mg IM Q6 PRN PRN Reason: Extrapyramidal S/S Unable PO Diphenhydramine HCl (Benadryl) 50 mg PO Q6 PRN PRN Reason: Extrapyramidal Symptoms Last Admin: 12/18/17 15:41 Dose: 50 mg Fluticasone Propionate (Flonase) 1 spr IRAJ BID [facility] Last Admin: 12/18/17 17:16 Dose: 1 spr Gabapentin (Neurontin) 300 mg PO TID [facility] Last Admin: 12/18/17 17:18 Dose: 300 mg Guaifenesin (Robitussin) 200 mg PO Q6 PRN PRN Reason: Cough Last Admin: 12/17/17 10:24 Dose: 200 mg [place] Carbonate ([place] Carbonate 300mg) 600 mg PO Q12 [facility] Last Admin: 12/18/17 21:09 Dose: 600 mg Loperamide HCl (Imodium) 2 mg PO QID PRN PRN Reason: Diarrhea Last Admin: 12/14/17 13:45 Dose: 2 mg Loratadine (Claritin) 10 mg PO DAILY [facility] Last Admin: 12/18/17 08:52 Dose: 10 mg Magnesium Hydroxide (Milk Of Magnesia) 30 ml PO HS PRN PRN Reason: Constipation Last Admin: 12/16/17 21:17 Dose: 30 ml Metformin HCl (Glucophage) 500 mg PO BID [facility] Last Admin: 12/18/17 17:17 Dose: 500 mg Nicotine (Nicoderm Cq) 1 patch TD DAILY [facility] Last Admin: 12/18/17 08:53 Dose: 1 patch Ondansetron HCl (Zofran Tab) 4 mg PO Q8 PRN PRN Reason: Nausea/Vomiting Last Admin: 12/11/17 19:12 Dose: 4 mg Perphenazine (Perphenazine) 2 mg PO TID [facility] Last Admin: 12/18/17 17:20 Dose: 2 mg Prazosin HCl (Minipress) 2 mg PO HS [facility] Last Admin: 12/18/17 21:09 Dose: 2 mg Quetiapine Fumarate (Seroquel) 300 mg PO HS [facility] Last Admin: 12/18/17 21:09 Dose: 300 mg Trazodone HCl (Desyrel) 200 mg PO HS PRN PRN Reason: Insomnia Last Admin: 12/18/17 21:09 Dose: 200 mg - Labs Labs: 12/10/17 15:10 12/10/17 15:10 - Constitutional Appears: Well, Non-toxic, No Acute Distress - Head Exam Head Exam: ATRAUMATIC, NORMAL INSPECTION, NORMOCEPHALIC - Eye Exam Eye Exam: EOMI, Normal appearance, PERRL Pupil Exam: NORMAL ACCOMODATION, PERRL - ENT Exam ENT Exam: Mucous Membranes Moist, Normal Exam - Neck Exam Neck Exam: Full ROM, Normal Inspection. absent: Lymphadenopathy - Respiratory Exam Respiratory Exam: Clear to Ausculation Bilateral, NORMAL BREATHING PATTERN - Cardiovascular Exam Cardiovascular Exam: REGULAR RHYTHM, RRR, +S1, +S2. absent: Murmur - GI/Abdominal Exam GI & Abdominal Exam: Soft, Normal Bowel Sounds. absent: Tenderness - Extremities Exam Extremities Exam: Full ROM, Normal Capillary Refill, Normal Inspection. absent: Joint Swelling, Pedal Edema - Back Exam Back Exam: NORMAL INSPECTION - Neurological Exam Neurological Exam: Alert, Awake, CN II-XII Intact, Normal Gait, Oriented x3 - Psychiatric Exam Psychiatric exam: Normal Affect, Normal Mood - Skin Skin Exam: Dry, Intact, Normal Color, Warm Assessment and Plan (1) URI (upper respiratory infection) Assessment & Plan: improved Status: Acute (2) Dysuria Assessment & Plan: no further complaitns. Status: Acute (3) Bipolar 1 disorder Assessment & Plan: cont psych meds, interventions, therapies Status: Acute (4) DVT prophylaxis Assessment & Plan: ambulation Status: Acute (5) Diabetes type 2, controlled Assessment & Plan: fsbg, home meds, diet Status: Acute (6) Constipation Assessment & Plan: colace Status: Acute
[2017-12-19 08:53] LABS: ALB/GLOB RATIO 1.2 (1.0-2.1); ALBUMIN 3.9 g/dL (3.5-5.0); ALT/SGPT 29 U/L (9-52); AST/SGOT 19 U/L (14-36); BLOOD UREA NITROGEN 7 mg/dl (7-17); CALCIUM 9.2 mg/dL (8.4-10.2); GFR NON-AFRICAN AMERICAN > 60
[2017-12-19] MEDS: Benzocaine/Menthol (Cepacol) Lozenge PO PRN ×2 (09:30→14:02)
--- NOTE | 2017-12-19 09:32 | PCM.PYCHPN ---
Psychiatric Progress Note - Psychiatric Progress Note Patient seen today, length of contact: Pt evaluated, cased discussed w/ team, chart reviewed Patient Chief Complaint: pt is less anxious and less depressed and insight is improving .nonside effects to meds and pt is tolerating it well. Medication Change: No Medical Record Reviewed: Yes Mental Status Examination - Cognitive Function Orientation: Person, Place, Situation, Time Memory: Intact Attention: Poor Concentration: Poor Association: Loose Fund of Knowledge: WNL - Mood Mood: Depressed, Anxious - Affect Affect: Constricted, Depressed - Speech Speech: Appropriate - Formal Thought Process Formal Thought Process: Paranoia - Suicidal Ideation Suicidal Ideation: No - Homicidal Ideation Homicidal Ideation: No Goal/Treatment Plan - Goal/Treatment Plan Need for Continued Stay: Remain at risks for inpatient hospitalization, Severe depression anxiety, Discharge may exacerbated symptoms Progress Toward Problem(s) and Goals/Treatment Plan: will continue to titrate meds to stabilize the pt. will start d/c planning when stable. Estimated Date of D/C: 12/21/17
[2017-12-19] MEDS: Bacitracin OINT 15GM TOP SCH ×2 (09:36→19:16)
[2017-12-19] MEDS: Bisacodyl 5mg EC Tab PO PRN (09:47)
[2017-12-19] MEDS: guaiFENesin 200 mg/10 ml Syrup UD PO PRN (11:20)
[2017-12-19 11:25] LABS: BASO % 0.3 % (0.0-2.0); EOS # 0.4 K/uL (0.0-0.7); EOS % 2.8 % (0.0-4.0); HEMOGLOBIN 11.4 g/dL (12.0-16.0); LYMPH # 2.5 K/uL (1.0-4.3); LYMPH % 18.6 % (20.0-40.0); MEAN CELL VOLUME 77.7 fl (81.0-99.0); MEAN CORPUSCULAR HEMOGLOBIN 24.7 pg (27.0-31.0); MEAN CORPUSCULAR HGB CONC 31.8 g/dL (33.0-37.0); MEAN PLATELET VOLUME 7.8 fl (7.2-11.7); MONO # 0.8 K/uL (0.0-0.8); MONO % 5.7 % (0.0-10.0); NEUT # 9.8 K/uL (1.8-7.0); NEUT % 72.6 % (50.0-75.0); NRBC % 0.1 % (0.0-0.0); RBC 4.6 Mil/uL (3.80-5.20); RED CELL DISTRIBUTION WIDTH 15.6 % (11.5-14.5); WHITE BLOOD COUNT 13.4 K/uL (4.8-10.8)
[2017-12-20] MEDS: Bacitracin OINT 15GM TOP SCH ×2 (09:22→21:15)
[2017-12-21] MEDS: Bacitracin OINT 15GM TOP SCH ×2 (09:59→16:31)
[2017-12-21] MEDS: Benzocaine/Menthol (Cepacol) Lozenge PO PRN (10:01)
--- NOTE | 2017-12-21 13:56 | PCM.PYCHPN ---
Psychiatric Progress Note - Psychiatric Progress Note Patient seen today, length of contact: Pt evaluated, cased discussed w/ team, chart reviewed Patient Chief Complaint: I want to start the program Problems Identified/Issues Discussed: pt evaluated , reported responding well to the current medications, pt stated she no longer experiences auditory hallucinations, sleeps better , feeling less depressed and mood less labile with the seroquel, no reported side effects of medications, no changes in sleep or appetite.pt attending groups, interacting with other peers, presenting with brighter affect , denied any current thoughts of self harm, denied homicidal ideation Medical Problems: multiple hospitalizations, history of non compliance DSM 5 Symptoms Update: borderline personality disorder post traumatic stress disorder hx of schizoaffective disorder Medication Change: No Medical Record Reviewed: Yes Mental Status Examination - Cognitive Function Orientation: Person, Place, Situation, Time Memory: Intact Attention: WNL Concentration: WNL Association: WNL Fund of Knowledge: WNL - Mood Mood: Anxious - Affect Affect: Constricted - Speech Speech: Appropriate - Formal Thought Process Formal Thought Process: Circumstantial Psychotic Thoughts and Behaviors: pt reported clearing off of the auditory hallucinations - Suicidal Ideation Suicidal Ideation: No - Homicidal Ideation Homicidal Ideation: No Goal/Treatment Plan - Goal/Treatment Plan Need for Continued Stay: Remain at risks for inpatient hospitalization, Severe depression anxiety, Discharge may exacerbated symptoms Progress Toward Problem(s) and Goals/Treatment Plan: perphenazine 2mg tid, cogentin 0.5mg tid seoquel 300mg qhs lithium 600mg bid, follow up on lithium level tomorrow am prazosin 2mg qhs neurontin 300mg tid trazodone 200mg qhs CBT group and supportive therapy pt will follow up with [facility] on discharge Estimated Date of D/C: 12/22/17
[2017-12-21] MEDS: Bisacodyl 5mg EC Tab PO PRN (18:54)
[2017-12-21 21:26] VITALS: O2SAT 97
[2017-12-22] MEDS: Bacitracin OINT 15GM TOP SCH (08:41)
[2017-12-22 09:05] VITALS: BP 126/76; PULSE 94; RESP 20; TEMP 96.3
--- NOTE | 2017-12-22 17:54 | PCM.PYCHDC ---
Mental Status Examination - Mental Status Examination Orientation: Person, Place, Situation, Time Memory: Intact Mood: Neutral Affect: Broad Speech: Appropriate Attention: WNL Concentration: WNL Association: WNL Fund of Knowledge: WNL Formal Thought Process: No Impairment Description of patient's judgement and insight: POOR INSIGHT AND JUDGMENT Psychotic Thoughts and Behaviors: pt on discharge denied any current perceptual disturbances, non elicited Suicidal Ideation: No Current Homicidal Ideation?: No Discharge Summary - Discharge Note Reason for Hospitalization: pt is 22 ys old female with previous diagnosis of schizoaffective disorder, PTSD, borderline intellectual function, recently discharged , partially com pliant with medications , stated feeling dizzy with thorazine, pt also has been feeling increasingly depressed due to conflict with staff at [facility] on day of evaluation while attending [facility]. pt reported to staff that she is experiencing command hallucinations telling her to hurt self and others, pt was brought to ER pt on the unit continues to report command hallucinations, making her anxious and irritable, presenting with anxious mood and affect passive suicidal ideation without active plan on the unit Laboratory Data: Abnormal Lab Results 12/21/17 12/22/17 12/22/17 17:13 06:33 08:10 POC Glucose (mg/dL) 155 H 212 H [place] 0.8 Consultations:: List each consultation separately and include: 1. Reason for request. 2. Findings. 3. Follow-up Summary of Hospital Course include:: 1. Description of specific treatment plan utilized for patients during their course of treatmen. 2. Summarize the time- course for resolution of acute symptoms and/or regressed behaviors. 3. Describe issues identified and worked on during hospitalization. 4. Describe medication utilized. 5. Describe medical problems identified and treated. 6. Reassessment of suicide risk Summary of Hospital Course: pt on admission presented with auditory hallucinations, irritability poor impulse control, pt was started on lithium and on thorazine wioth poor response, pt was then switched to perphenazine 2mg tid, with gradual clearing of auditory halluciantions, pt continued to have depressed mood and poor sleep, seroquel 300mg qhs was added for mood stabilization and depression on discharge pt mental status was stable, denied any current perceptual disturbances, non elicited , denied suicidal or homicidal ideation denied any current thoughts of self harm - Final Diagnosis (DSM 5) Condition upon Discharge: STABLE DSM 5: borderline personality disorder posttraumatic stress disorder hx of schizoaffective disorder Disposition: HOME/ ROUTINE Follow-up Treatment Plan: perphenazine 2mg tid, cogentin 0.5mg tid seoquel 300mg qhs lithium 600mg bid, follow up on lithium level tomorrow am prazosin 2mg qhs neurontin 300mg tid trazodone 200mg qhs CBT group and supportive therapy pt will follow up with [facility] on discharge - Antipsychotic Medications Pt discharged on 2 or more routine antipsychotic medications: Yes - Justification for 2 or more meds Failed 3 or more trials of Monotherapy: List medications: risperidone, abilify, thorazinei
== END 2017-12-22 16:38 | disposition home or self-care (01) | DRG 430 ==
LOC: H.ER 14:23 → H.ERHOLD 17:53 → H.PSYCH 18:53
PROVIDERS: ADMIT Psychiatry & Neurology Psychiatry; ATTEND Psychiatry & Neurology Psychiatry
PROC: GZHZZZZ Group Psychotherapy (ICD-10-PCS; principal; 2017-12-10)
PROC: GZ56ZZZ Individual Psychotherapy, Supportive (ICD-10-PCS; 2017-12-10)
PROC: GZ3ZZZZ Medication Management (ICD-10-PCS; 2017-12-10)
DX: F25.0 Schizoaffective disorder, bipolar type (principal); R45.851 Suicidal ideations; F43.10 Post-traumatic stress disorder, unspecified; F60.3 Borderline personality disorder; I10 Essential (primary) hypertension; E78.00 Pure hypercholesterolemia, unspecified; E03.9 Hypothyroidism, unspecified; J45.909 Unspecified asthma, uncomplicated; F41.9 Anxiety disorder, unspecified; E11.9 Type 2 diabetes mellitus without complications; K58.0 Irritable bowel syndrome with diarrhea; Z62.810 Personal history of physical and sexual abuse in childhood; Z79.899 Other long term (current) drug therapy; J06.9 Acute upper respiratory infection, unspecified; F17.210 Nicotine dependence, cigarettes, uncomplicated; Z91.19 Patient's noncompliance with other medical treatment and regimen